=== PATIENT | female | born 1935 | race Caucasian/White ===

== ENCOUNTER 2016-10-27 09:25 | Inpatient (IN) | payer MEDICARE, OTHER ==
[2016-10-27] MEDS ORDERED: HYDROCODONE/APAP 5/325MG TABLET PO PRN ×2 (16:13→16:14)
--- NOTE | 2016-10-27 18:18 | Rehab Evaluation ---
Patient Information - Patient Information Diagnosis: R babatunde arthroplasty R hip Ordered Treatment: PT Evaluate and Treat Status: Initial Evaluation Date of Surgery: 10/25/16 History: Detail (The patient was transferred from [facility] on 10/27/16 for Rehabilitation in the Swing Bed Unit. The patient was admitted to [facility] on 10/24 after falling when her foot caught on the lazy boy and sustaining a R femoral neck fracture.) Past Medical/Surgical Hx: PAST MEDICAL/SURGICAL HISTORY Past Surgical History 10/24/2016 ORIF right hip left hip screw approx. 20yrs ago PMH - Respiratory Hx Respiratory Disorders No Hx Asthma No Hx Bronchitis No Hx Chronic Obstructive No Pulmonary Disease (COPD) Hx Dyspnea No Hx Pneumonia No Hx Pulmonary Embolism No Hx Sleep Apnea No Hx Tuberculosis No Hx of CPAP No Comment: currently on 02 2Lpnc PMH - Cardiovascular Hx Cardiovascular Disorders No Hx Abnormal EKG No Hx Cardiac Catheterization No Hx Chest Pain No Hx Congestive Heart Failure No Hx Deep Vein Thrombosis No Hx Edema No Hx Heart Attack No Hx Hypertension Yes Hx Hypotension No Hx Irregular Heartbeat No Hx Palpitations No Hx Pacemaker/Defibrillator No Hx Vascular Disease No PMH - Neuro Hx Neurological Disorders No PMH - GI Hx Gastrointestinal Disorders Yes Hx Weight Loss/Weight Gain Yes Comment: unable to tolerate sweets PMH - Hx Genitourinary Disorders No Comment: catheter removed noon today PMH - Endocrine Hx Endocrine Disorders No Hx Diabetes No Hx Thyroid Disease No PMH - Musculoskeletal Hx Musculoskeletal Disorders Yes Hx Arthritis Yes Hx Back Injury No Hx Fibromyalgia No Hx Gout No Hx Musculoskeletal Disease No PMH - Psych Hx Psychiatric Problems No PMH - Hematology/Oncology Hx Hematology/Oncology No Disorders Premorbid Status: Detail (Per the patient's report she was independent with all mobility and ambulated without assistive device. The patient was independent with all household tasks.) Social History: Detail (The patient lives in a one story home with her spouse. She has 1 step on the porch and one step to get into house with no railings. The patient has a regular tub/shower combo and regular toilet without grab bars. The patient has a standard walker and not other equipment.) Precautions: [place], Fall, Other (THR precautions) - Time With Patient Total Time Spent With Patient (Min): 30 Treatment Procedures: Detail (Initial Evaluation) Subjective Information - Subjective Information Per Patient (The patient complained of fatigue and R hip pain which was 3 prior to activity and 6 after activity using 0 to 10 pain scale.) Objective Data - Pain Pain Present: Yes Pain Intensity: 6 Pain Scale Used: Numeric (1 - 10) - Mental Status Patient Orientation: Oriented x3 - ROM Not within normal limits (L LE was Within Functional Limits, R LE was within BAILEY precuations.) - Strength/Tone Other (Not tested. B UE L LE was functional . R LE was not tested. The patient has bilateral UE tremoring , which she states is usual and LE tremoring probably due to fatigue.) - Bed Mobility Needs Assist (Supine to sit was maximal PA of 2 due to in part patient's apprehension and uncertainty of how to acheive movement. Sit to supine required maximal Pa to lift LE's and mod PA of 1 with upper body. The patient required maximal PA of 2 for scooting up in bed due to fatigue.) - Transfers Needs Assist (The patient required Moderate PA of 2 for sit to stand. The patient completed pivot transfer from bed to commode with CG of 2 and support of wheeled walker, tactile and verbal cues to complete transfer with WBAT on the R LE. The patient's movements were slow. The patient completed all activity with 2 L of O2.) - Balance Balance Sitting: Fair (The patient required support of surface to maintain balance in sitting) Balance Standing: Fair (The patient required support of walker to stand.) - Gait Detail (The patient did not ambulate.) Therapy Assessment - Therapy Assessment Detail (The patient requires assistance of 2 with mobility and fatigues quickly with activity. The patient has slow guarded movements and apprehension.) Problem List - Problem List Physical Therapy Problem List: Detail (1) Decreased LE strength 2) Decreased ability to complete sustained physical activity 3) The patient requires assist with mobility 4) Non ambulatory) Goals - Goals Physical Therapy Goals: 1) The patient will ambulate with assistive device 150 feet WBAT on the R independently. 2) The patient will ambulate on 2 to 3 steps with supervision. 3) The patient will be independent with bed mobility. 4) The patient will be independent with all transfers. 5) Evaluate LE strength using manual testing. 6) Independent with THR precautions and HEP of LE strengthening exercises. Prognosis - Prognosis Good (Excellent to return to home environment.) Plan - Plan Physical Therapy Plan: PT M-F 1 to 2 times for bed mobility, transfer training, gait training, LE strengthening exercises.
[2016-10-27] MEDS: TAPENTADOL 50 MG TAB PO PRN (18:38)
--- NOTE | 2016-10-27 19:20 | History & Physical ---
History of Present Illness - Date Date of Service for History & Physical: 10/28/16 - History of Present Illness Admitting Diagnosis: Status post right babatunde-hip arthroplasty History of Present Illness: 80 yo female admitted to our [facility] program following right hip hemiarthroplasty. PMHx of HTN. Patient brought to the ER 10/24/16 post fall from standing height. She tripped while walking from the kitchen to the living room and fell onto her right hip with immediate onset of pain and inability to ambulate. Prior to this, patient ambulates without any assistive devices and completes her ADL's independently. Patient lives in a one story home with her . She has three children and eleven grand children. Three steps to get into her home w/o a railing. She denies any history of DVT/PE. patient currently anticoagulated with Eliquis 2.5 mg BID. Pain control consists of Gates and Tapentadol. Patient does not like Gates, stating it makes her nauseous. She does not feel as if Tapentadol is controlling her pain. She states Tylenol works well for her at home and she prefers to trial this for pain. She denies any calf pain, SOB, fever, chills, constipation, diarrhea, abdominal pain, dysuria, hematuria, chest pain or diaphoresis. She has been experienced a non productive cough that improved with sitting up and the incentive spirometer. [place] [facility] prior to transfer. Patient has had < 50 CC's out since arrival. Bladder scan revealed > 500 cc's of urine in the bladder this morning. Patient is being straight cathed at this time if unable to void independently. Orthopedist: Dr. Nunez PCP: Joel Edouard PA-C General - Cognitive Patterns Speech: Normal, Soft Orientation: Oriented x3 - Communication Preferred Language?: Nauruan Level of Education: High School Comprehension Ability: No Impairment Able to Read: No Able to Write: No Select best description of speech pattern: Clear Speech Ability to express ideas and wants: Understood Understanding verbal content: Understands - Psychosocial Well-Being Usual Living Arrangement: Spouse - Physical Functioning Activity Level: Up with assist x2 Assistive Devices: 2 Wheel Walker, Oxygen Ambulation Ability: Dependent Bed Mobility: Dependent Transfer Ability: Dependent Bathing Ability: Dependent Personal Hygiene: Dependent Dressing Ability: Dependent Eating (Feeding) Ability: Independent Toileting Ability: Dependent Administer Own Medication: Independent - Continence Bladder Pattern: Due to Void - Dental Status Broken or loosely fitting full or partial dentures: Yes Abnormal mouth tissue (ulcers, masses, oral lesions, etc.): No Obvious or likely cavity or broken natural teeth: No Inflamed or bleeding gums or loose natural teeth: No Mouth/facial pain, discomfort or difficulty chewing: No - Nutrition Screening Poor oral intake > 1 week: Yes Unplanned weight loss in specified time frame: Yes Nutrition Support via tube feedings or parenteral nutrition: No Pressure Ulcer: No Significantly underweight define as BMI <18.5 kg/m2: No Albumin <2.5mg/dL: No Persistent nausea/vomiting/diarrhea >3 days: No Difficulty chewing/swallowing/mouth sores: No Admitting Diagnosis: Yes Nutrition Risk Score: High Risk Review of Systems Reviewed: No additional complaints except as noted below Constitutional: Reports: As per HPI. Denies: Chills, Fever, Malaise, Night sweats, Weakness, Weight change Eyes: Reports: As per HPI. Denies: Eye discharge, Eye pain, Photophobia, Vision change ENT: Reports: As per HPI. Denies: Congestion, Dental pain, Ear pain, Epistaxis , Hearing loss, Throat pain Respiratory: Reports: As per HPI. Denies: Cough, Dyspnea, Hemoptysis, Stridor, Wheezes Cardiovascular: Reports: As per HPI. Denies: Arrhythmia, Chest pain, Dyspnea on exertion, Edema, Murmurs, Orthopnea, Palpitations, Paroxysmal nocturnal dyspnea, Rheumatic Fever, Syncope Endocrine: Reports: As per HPI. Denies: Fatigue, Heat or cold intolerance, Polydipsia, Polyuria Gastrointestinal: Reports: As per HPI. Denies: Abdominal pain, Constipation, Diarrhea, Hematemesis, Hematochezia, Melena, Nausea, Vomiting Genitourinary: Reports: As per HPI. Denies: Abnormal menses, Discharge, Dyspareunia, Dysuria, Frequency, Hematuria, Incontinence, Retention, Urgency Musculoskeletal: Reports: As per HPI. Denies: Arthralgia, Back pain, Gout, Joint swelling, Myalgia, Neck pain Skin: Reports: As per HPI. Denies: Bruising, Change in color, Change in hair/ nails, Lesions, Pruritus, Rash Neurological: Reports: As per HPI. Denies: Abnormal gait, Confusion, Headache, Numbness, Paresthesias, Seizure, Tingling, Tremors, Vertigo, Weakness Psychiatric: Reports: As per HPI. Denies: Anxiety, Auditory hallucinations, Depression, Homicidal thoughts, Suicidal thoughts, Visual hallucinations Hematological/Lymphatic: Reports: As per HPI. Denies: Anemia, Blood Clots, Easy bleeding, Easy bruising, Swollen glands Past Medical History - SOCIAL HISTORY Smoking Status: Never smoker - SURGICAL HISTORY Past Surgical History: 10/24/2016 ORIF right hip. left hip screw approx. 20yrs ago - RESPIRATORY Hx Respiratory Disorders: No Hx Asthma: No Hx Bronchitis: No Hx COPD: No Hx Dyspnea: No Hx Pneumonia: No Hx Pulmonary Embolism: No Hx Sleep Apnea: No Hx Tuberculosis: No Hx of CPAP: No Comment:: currently on 02 2Lpnc - CARDIOVASCULAR Hx Cardio Disorders: No Hx Abnormal EKG: No Hx Cardiac Cath: No Hx Chest Pain: No Hx CHF: No Hx Deep Vein Thrombosis: No Hx Edema: No Hx Heart Attack: No Hx Hypertension: Yes Hx Hypotension: No Hx Irregular Heartbeat: No Hx Palpitations: No Hx Pacemaker/Defib: No Hx Vascular Disease: No - NEURO Hx Neuro Disorders: No - GI Hx GI Disorders: Yes Hx Wt Loss/Wt Gain: Yes Comment:: unable to tolerate sweets - Hx Genitourinary Disorders: No Comment:: catheter removed noon today - ENDOCRINE Hx Endocrine Disorders: No Hx Diabetes: No Hx Thyroid Disease: No - MUSCULOSKELETAL Hx Musculoskeletal Disorders: Yes Hx Arthritis: Yes Hx Back Injury: No Hx Fibromyalgia: No Hx Gout: No Hx Musculoskeletal Disease: No - PSYCH Hx Psych Problems: No - HEMATOLOGY/ONCOLOGY Hx Hematology/Oncology Disorders: No Family Medical History Any Significant Family History?: Yes H&P Meds/Allergies - Allergies Allergies: Allergies Allergy/AdvReac Type Severity Reaction Status Date / Time hydrocodone AdvReac NAUSEA Verified 10/28/16 10:28 - Home Medications Home Medications Medication Instructions Recorded Confirmed Last Taken Diltiazem HCl [Diltiazem 24Hr ER] 10/27/16 Unknown Diltiazem HCl [Diltiazem 24Hr ER] 10/27/16 Unknown Lisinopril [Zestril] 10/27/16 Unknown Rosuvastatin Calcium [Crestor] 5 mg PO DAILY 10/27/16 10/27/16 Unknown - Active Medications Active Medications: Current Medications Acetaminophen/Hydrocodone Bitart (Gates 5mg/325mg) 1 each PO Q6H PRN PRN Reason: Pain - General Acetaminophen/Hydrocodone Bitart (Gates 5mg/325mg) 2 each PO Q6H PRN PRN Reason: Pain - General Apixaban (Eliquis) 2.5 mg PO BID [facility] Aspirin (Ecotrin (Ec)) 81 mg PO QHS [facility] Calcium Carbonate/Glycine (Tums) 1,000 mg PO DAILYWM [facility] Diltiazem HCl (Cardizem Cd) 180 mg PO QHS [facility] Lisinopril (Zestril) 20 mg PO QHS [facility] Patient Own Med: Crestor ( Rosuvastatin) 5 Mg 1 each PO QHS [facility] Patient Own Med: Estrace Vaginal Cream 1 each [facility] Patient Own Med: (Primidone 50 Mg) 1 each PO QHS [facility] Patient Own Med: (Propranolol Er 80 Mg) 1 each PO QHS [facility] Tapentadol (Nucynta) 50 mg PO Q4H PRN PRN Reason: Pain - General Last Admin: 10/27/16 18:38 Dose: 50 mg Vitamin D (Vitamin D3) 2,000 unit PO QHS [facility] Physical Exam - Vital Signs Vital Signs: Vital Signs - Last 24 Hrs Temp Pulse Pulse Resp BP Pulse Ox 10/27/16 17:44 16 L 10/27/16 15:50 99.7 F H 79 18 145/77 93 L - General General Appearance: Alert, Oriented x3, Cooperative, No acute distress - Head Head exam: Atraumatic, Normocephalic - Eye Eye exam: Normal appearance - ENT ENT exam: Normal exam Ear exam: Normal external inspection Mouth exam: Normal external inspection - Neck Neck exam: Normal inspection, Full ROM - Respiratory Respiratory exam: Normal lung sounds bilaterally. negative: Prolonged expiratory, Wheezes - Cardiovascular Cardiovascular Exam: Regular rate, Normal rhythm - GI/Abdominal GI/Abdominal exam: Soft, Normal bowel sounds - Rectal Rectal exam: Deferred - exam: Deferred - Extremities Extremities exam: negative: Calf tenderness, Full ROM (not of RLE), Pedal edema , Tenderness - Back Back exam: Reports: Normal inspection - Neurological Neurological exam: Abnormal gait (due to pain level), Alert, Oriented X3 Discharge Potential - Discharge Needs Community Services Used Prior to Admission: None Plan - Swing Bed Certification Initial Certification Due: 10/27/16 14 Day Re-Cert Due: 11/10/16 44 Day Re-Cert Due: 12/10/16 74 Day Re-Cert Due: 01/09/17 - Detailed Diagnosis and Plan (1) S/P hip hemiarthroplasty Current Visit: Yes Status: Acute Base Code: Z96.649 - PRESENCE OF UNSPECIFIED ARTIFICIAL HIP JOINT Comment: 10/28/16: Patient is a 80 yo female s/p right hip ORIF. Will trial Tylenol 3 for pain control. Continue Elquis 2.5 mg BID for adequate DVT prophylaxis. PT/OT to assist with increasing physical strength and functioning. (2) Weakness Current Visit: Yes Status: Acute Base Code: R53.1 - WEAKNESS Comment: 10/28/16: 2/2 right hip surgery. PT/OT to help build physical strength and functioning. Adequate PO pain control. (3) DVT prophylaxis Current Visit: Yes Status: Acute Base Code: [id number] - Comment: 10/28/16: Eliquis 2.5 mg bid. (4) Full code status Current Visit: Yes Status: Acute Base Code: Z78.9 - OTHER SPECIFIED HEALTH STATUS Comment: 10/28/16: patient is full code
[2016-10-27] MEDS: ASPIRIN 81 MG TABEC PO SCH (21:32)
[2016-10-27] MEDS: DILTIAZEM 180MG CR CAPSULE PO SCH (21:32)
[2016-10-27] MEDS: LISINOPRIL 20 MG TABLET PO SCH (21:32)
[2016-10-27] MEDS: APIXABAN 2.5MG TABLET PO SCH (21:32)
[2016-10-27] MEDS: CHOLECALCIFEROL 1,000 UNIT TABLET PO SCH (21:32)
[2016-10-27] MEDS: CRESTOR 5 MG PO SCH (21:35)
[2016-10-27] MEDS: PROPRANOLOL 80 MG PO SCH (21:36)
[2016-10-27] MEDS: PRIMIDONE 50 MG PO SCH (21:36)
[2016-10-28] MEDS: TAPENTADOL 50 MG TAB PO PRN ×2 (01:16→09:08)
--- NOTE | 2016-10-28 08:44 | Rehab Evaluation ---
Patient Information - Patient Information Diagnosis: R babatunde arthroplasty R hip Ordered Treatment: OT Evaluate and Treat Status: Initial Evaluation Surgery: Yes (right hip babatudne arthroplasty) Date of Surgery: 10/25/16 History: Detail (The patient was transferred from [facility] on 10/27/16 for Rehabilitation in the Swing Bed Unit. The patient was admitted to [facility] on 10/24 after falling when her foot caught on the lazy boy and sustaining a R femoral neck fracture.) Past Medical/Surgical Hx: PAST MEDICAL/SURGICAL HISTORY Past Surgical History 10/24/2016 ORIF right hip left hip screw approx. 20yrs ago PMH - Respiratory Hx Respiratory Disorders No Hx Asthma No Hx Bronchitis No Hx Chronic Obstructive No Pulmonary Disease (COPD) Hx Dyspnea No Hx Pneumonia No Hx Pulmonary Embolism No Hx Sleep Apnea No Hx Tuberculosis No Hx of CPAP No Comment: currently on 02 2Lpnc PMH - Cardiovascular Hx Cardiovascular Disorders No Hx Abnormal EKG No Hx Cardiac Catheterization No Hx Chest Pain No Hx Congestive Heart Failure No Hx Deep Vein Thrombosis No Hx Edema No Hx Heart Attack No Hx Hypertension Yes Hx Hypotension No Hx Irregular Heartbeat No Hx Palpitations No Hx Pacemaker/Defibrillator No Hx Vascular Disease No PMH - Neuro Hx Neurological Disorders No PMH - GI Hx Gastrointestinal Disorders Yes Hx Weight Loss/Weight Gain Yes Comment: unable to tolerate sweets PMH - Hx Genitourinary Disorders No Comment: catheter removed noon today PMH - Endocrine Hx Endocrine Disorders No Hx Diabetes No Hx Thyroid Disease No PMH - Musculoskeletal Hx Musculoskeletal Disorders Yes Hx Arthritis Yes Hx Back Injury No Hx Fibromyalgia No Hx Gout No Hx Musculoskeletal Disease No PMH - Psych Hx Psychiatric Problems No PMH - Hematology/Oncology Hx Hematology/Oncology No Disorders Premorbid Status: Detail (Per the patient's report she was independent with all mobility and ambulated without assistive device. The patient was independent with all household tasks.) Social History: Detail (The patient lives with her spouse in a 1 story house with basement. Her laundry is in the basement and she goes down into the basement often. She has 1 step on the porch and one step to get into house with no railings. The patient has a regular tub/shower combo and regular toilet without grab bars. She reports one bathroom has an elevated toilet. She usually stands to shower and was Ind with all ADLs, meal prep, laundry and home mgmt. The patient has a standard walker.) Precautions: [place], Fall, Other (THR precautions) - Time With Patient Total Time Spent With Patient (Min): 60 Treatment Procedures: Detail (OT eval low complexity) Subjective Information - Subjective Information Per Patient Objective Data - Pain Pain Present: Yes (.Pt reports 0/10 pain at rest but increased hip pain with movement) - Mental Status Patient Orientation: Oriented x3 - Visual Perception Appears within normal limits for therapeutic activities (Pt wears glasses for reading.) - ROM Within normal limits (Bobby UE AROM WNL.) - Strength/Tone Within normal limits (Bobby UE MMT 4/5 throughout.) - Coordination Appears within normal limits for therapeutic activities (Pt presents with bobby UE tremors but reports this is normal for her.) - Bed Mobility Needs Assist (Pt required min assist to move right LE for supine to sit.) - Transfers Needs Assist (Sit to stand from EOB and commode with mod assist and use of walker. Able to pivot transfer with walker and mod assist.) - Balance Balance Sitting: Good Balance Standing: Poor - Sensation Intact - Gait Detail (Pt unable to ambulate at this time.) - ADL's/IADL's Detail (Pt able to comb hair and brush teeth with set up, Ind with UE dressing, total assist for LE dressing, able to complete partial toileting hygiene with set up and cues. Has not attempted showering at time of evaluation.) Therapy Assessment - Therapy Assessment Detail (Pt presents with impaired Ind with self cares and mobility as well as decreased endurance needed for safe and Ind ADLs/IADLS.) Problem List - Problem List Physical Therapy Problem List: Detail (1) Decreased LE strength 2) Decreased ability to complete sustained physical activity 3) The patient requires assist with mobility 4) Non ambulatory) Occupational Therapy Problem List: Detail (1. Decreased Ind with functional mobility needed for safe and Ind ADLs. 2. Decreased Ind with dressing. 3. Decreased Ind with showering. 4. Decreased endurance and tolerance to activity.) Goals - Goals Physical Therapy Goals: 1) The patient will ambulate with assistive device 150 feet WBAT on the R independently. 2) The patient will ambulate on 2 to 3 steps with supervision. 3) The patient will be independent with bed mobility. 4) The patient will be independent with all transfers. 5) Evaluate LE strength using manual testing. 6) Independent with THR precautions and HEP of LE strengthening exercises. Occupational Therapy Goals: 1. Pt will be Ind with bed mobility and transfers. 2. Pt will be Ind with total body dressing with use of adaptive equipment as needed. 3. Pt will be Ind with showering 4. Pt will demonstrate improved endurance and activity tolerance to allow safe and Ind ADLs. Prognosis - Prognosis Good Plan - Plan Physical Therapy Plan: PT M-F 1 to 2 times for bed mobility, transfer training, gait training, LE strengthening exercises. Occupational Therapy Plan: OT 2-4 days per week to address self cares, functional mobility, endurance, safety and Ind with ADLs/IADLs to allow return home with spouse.
[2016-10-28] MEDS: ESTRACE VAGINAL MC SCH (09:09)
[2016-10-28] MEDS: CALCIUM CARBONATE 500 MG TAB.CHEW PO SCH (09:09)
[2016-10-28] MEDS: APIXABAN 2.5MG TABLET PO SCH ×2 (09:09→21:59)
[2016-10-28] MEDS: DOCUSATE SODIUM 100 MG CAPSULE PO SCH ×2 (10:31→21:59)
[2016-10-28 13:09] LABS: URINE APPEARANCE CLEAR; URINE BILIRUBIN NEGATIVE (NEGATIVE); URINE BLOOD MODERATE (NEGATIVE); URINE COLOR YELLOW; URINE GLUCOSE (UA) NEGATIVE (NEGATIVE); URINE KETONE TRACE (NEGATIVE); URINE LEUKOCYTE ESTERASE MODERATE (NEGATIVE); URINE NITRITE NEGATIVE (NEGATIVE); URINE UROBILINOGEN 0.2 E.U./dL (0.20 - 1.00)
[2016-10-28 13:20] LABS: URINE BACTERIA 2+; URINE RENAL EPITHELIAL CELLS 0 - 2 /hpf; URINE WBC >50 (0-2/hpf); URINE YEAST MANY
[2016-10-28] MEDS ORDERED: FLUCONAZOLE 100 MG TABLET PO ONE (14:00)
[2016-10-28] MEDS: ACETAMINOPHEN/CODEINE TABLET PO PRN ×2 (14:33→21:56)
--- NOTE | 2016-10-28 17:06 | Physical Therapy Tx Note ---
Physical Therapy Tx Note - Treatment Note Tolerated: Fair Total Time Spent With Patient: 30 Physical Therapy Tx Note: Detail (Pt in bed upon arrival. Nrsg placed urinary catheter this afternoon due to retention. Pt states procedure was quite uncomfortable and requested pain medication at start of session. She was coaxed into participating with P.T. for LE exercises: performed 10 reps each of ankle pumps, heel slides (w/assist), quad sets, hamstring sets, gluteal sets, and hip abduction (w/assist). She was leaning to the right in bed from fatigue. She was repositioned w/additional pillow on right and lower bedrail raised as well. Bedside table placed over bed within patient's reach, as well as call light. Left in room w/daughter present; nrsg notified.) Physical Therapy Problem List: Detail (1) Decreased LE strength 2) Decreased ability to complete sustained physical activity 3) The patient requires assist with mobility 4) Non ambulatory) Physical Therapy Goals: 1) The patient will ambulate with assistive device 150 feet WBAT on the R independently. 2) The patient will ambulate on 2 to 3 steps with supervision. 3) The patient will be independent with bed mobility. 4) The patient will be independent with all transfers. 5) Evaluate LE strength using manual testing. 6) Independent with THR precautions and HEP of LE strengthening exercises. Prognosis: Good Physical Therapy Plan: PT M-F 1 to 2 times for bed mobility, transfer training, gait training, LE strengthening exercises.
[2016-10-28] MEDS: CHOLECALCIFEROL 1,000 UNIT TABLET PO SCH (21:57)
[2016-10-28] MEDS: LISINOPRIL 20 MG TABLET PO SCH (21:57)
[2016-10-28] MEDS: CRESTOR 5 MG PO SCH (21:58)
[2016-10-28] MEDS: PROPRANOLOL 80 MG PO SCH (21:58)
[2016-10-28] MEDS: PRIMIDONE 50 MG PO SCH (21:58)
[2016-10-28] MEDS: DILTIAZEM 180MG CR CAPSULE PO SCH (21:59)
[2016-10-28] MEDS: ASPIRIN 81 MG TABEC PO SCH (21:59)
[2016-10-29] MEDS: ACETAMINOPHEN/CODEINE TABLET PO PRN ×2 (02:56→20:28)
[2016-10-29 06:19] LABS: HEMATOCRIT 34.2 % (35.0-47.0); HEMOGLOBIN 11.3 gm/dl (11.6-16.0); MEAN CELL VOLUME 92.7 fl (81-97); MEAN CORPUSCULAR HEMOGLOBIN 30.6 pg (27-33); MEAN PLATELET VOLUME 10.6 fl (7.4-10.4); PLATELET COUNT 185 K/uL (130-400); RED BLOOD COUNT 3.69 M/uL (3.80-5.40); WHITE BLOOD COUNT W/O DIFF 8.6 K/uL (4.2-12.2)
[2016-10-29 06:24] LABS: BLOOD UREA NITROGEN 11 mg/dL (7-17); CREATININE 0.5 mg/dL (0.52-1.04); EST GLOMERULAR FILTRATION RATE > 60 ml/min; GLUCOSE,RANDOM 100 mg/dL (70-110)
[2016-10-29] MEDS: MAGNESIUM HYDROXIDE 30 ML UDC PO PRN (07:00)
[2016-10-29] MEDS ORDERED: ONDANSETRON 4 MG ODT TABLET SL ONE (07:51)
[2016-10-29] MEDS: CALCIUM CARBONATE 500 MG TAB.CHEW PO SCH (08:04)
[2016-10-29] MEDS: APIXABAN 2.5MG TABLET PO SCH (09:37)
[2016-10-29] MEDS: DOCUSATE SODIUM 100 MG CAPSULE PO SCH (09:37)
--- NOTE | 2016-10-29 11:37 | Physical Therapy Tx Note ---
Physical Therapy Tx Note - Treatment Note Tolerated: Good Total Time Spent With Patient: 45 Physical Therapy Tx Note: Detail (Pt asleep in bed upon arrival, awoke easily. Cooperative for PT. Performed 10 reps each of ankle pumps, heel slides w/assist , quad sets, hamstring sets, glut sets, and hip abduction w/assist. Min assist for getting OOB w/use of handrail, for R LE and for getting upright. Min assist for sit/stand transfer to FWW, CGA and VCs for stepping to, onto and off of scale for weight x 2, and back toward bed. Sat at bedside for 5 minutes sipping fluids. Mod assist for LE's to get back into bed and to position upper body in middle of bed. Fatigued but tolerated well. Improved ms recruitment R LE. Encouraged to get up w/nrsg for meals. Left in bed w/HOB elevated, call light in reach. Nrsg notified.) Physical Therapy Problem List: Detail (1) Decreased LE strength 2) Decreased ability to complete sustained physical activity 3) The patient requires assist with mobility 4) Non ambulatory) Physical Therapy Goals: 1) The patient will ambulate with assistive device 150 feet WBAT on the R independently. 2) The patient will ambulate on 2 to 3 steps with supervision. 3) The patient will be independent with bed mobility. 4) The patient will be independent with all transfers. 5) Increased LE strength to 3+/5 in proximal R LE ms groups, for stability w/ambulation. 6) Independent with THR precautions and HEP of LE strengthening exercises. Prognosis: Good Physical Therapy Plan: PT M-F 1 to 2 times for bed mobility, transfer training, gait training, LE strengthening exercises.
[2016-10-29] MEDS ORDERED: 0.9 % SODIUM CHLORIDE 1000ML 1,000 ML IV PRN (17:15)
[2016-10-29] MEDS: ONDANSETRON 4 MG ODT TABLET SL PRN ×2 (18:42→20:27)
[2016-10-30] MEDS: DOCUSATE SODIUM 100 MG CAPSULE PO SCH ×3 (01:01→21:22)
[2016-10-30] MEDS: LISINOPRIL 20 MG TABLET PO SCH ×2 (01:01→21:29)
[2016-10-30] MEDS: CHOLECALCIFEROL 1,000 UNIT TABLET PO SCH ×2 (01:01→21:29)
[2016-10-30] MEDS: DILTIAZEM 180MG CR CAPSULE PO SCH ×2 (01:01→21:22)
[2016-10-30] MEDS: APIXABAN 2.5MG TABLET PO SCH ×3 (01:01→21:22)
[2016-10-30] MEDS: ASPIRIN 81 MG TABEC PO SCH ×2 (01:04→21:22)
[2016-10-30] MEDS: PRIMIDONE 50 MG PO SCH ×2 (01:06→21:29)
[2016-10-30] MEDS: PROPRANOLOL 80 MG PO SCH ×2 (01:06→21:29)
[2016-10-30] MEDS: CRESTOR 5 MG PO SCH ×2 (01:06→21:28)
[2016-10-30] MEDS: CALCIUM CARBONATE 500 MG TAB.CHEW PO SCH (10:11)
[2016-10-30] MEDS ORDERED: BISACODYL 5 MG TABLET PO SCH (10:15)
[2016-10-30] MEDS ORDERED: TRIAMCINOLONE 0.5% PO PRN (10:28)
[2016-10-30] MEDS: ONDANSETRON 4 MG ODT TABLET SL PRN (11:26)
[2016-10-30] MEDS: ACETAMINOPHEN 500 MG TABLET PO PRN ×2 (11:49→21:21)
[2016-10-30] MEDS: MIRTAZAPINE 15 MG TABLET PO SCH (21:22)
[2016-10-31 06:27] LABS: HEMOGLOBIN 11.2 gm/dl (11.6-16.0); MEAN CELL VOLUME 92.4 fl (81-97); MEAN CORPUSCULAR HEMOGLOBIN 30.4 pg (27-33); MEAN CORPUSCULAR HGB CONC 32.9 g/dl (32-36); MEAN PLATELET VOLUME 9.9 fl (7.4-10.4); PLATELET COUNT 288 K/uL (130-400); RED BLOOD COUNT 3.68 M/uL (3.80-5.40); WHITE BLOOD COUNT W/O DIFF 8.8 K/uL (4.2-12.2)
[2016-10-31 06:36] LABS: ANION GAP 10.7 (7-16); BLOOD UREA NITROGEN 8 mg/dL (7-17); CARBON DIOXIDE 29.3 mmol/L (22-30); CREATININE 0.5 mg/dL (0.52-1.04); EST GLOMERULAR FILTRATION RATE > 60 ml/min; GLUCOSE,RANDOM 84 mg/dL (70-110)
[2016-10-31 06:37] LABS: PLATELET ESTIMATE NORMAL (NORMAL)
[2016-10-31] MEDS ORDERED: AL HYDROX/MAG HYDROX 30ML UD PO PRN (07:44)
[2016-10-31] MEDS: CALCIUM CARBONATE 500 MG TAB.CHEW PO SCH (08:31)
[2016-10-31] MEDS: ONDANSETRON 4 MG ODT TABLET SL PRN ×2 (08:32→15:51)
[2016-10-31] MEDS: ACETAMINOPHEN 500 MG TABLET PO PRN ×2 (08:34→21:08)
--- NOTE | 2016-10-31 08:34 | Occupational Therapy Tx Note ---
Occupational Therapy Tx Note - Treatment Note Tolerated: Fair Total Time Spent With Patient: 50 (ADL) Occupational Therapy Treatment Note: Detail (S: Pt reports her stomach is upset but she is willing to try showering. O: Supine to sit with min assist to move right LE to EOB. Sit to stand with walker and CG assist. Amb to shower , approx. 12 feet with walker and CG assist. Sat on commode chair and doffed shirt with verbal cues, briefs and sock type slippers with max assist. Pt completed showering in sitting with hand held shower and mod assist. She was able to stand with grab bars to wash marco area. Pt dried self with mod assist, donned shirt Indly. Amb to chair with 2 wheeled walker and CG assist. Pt educated re: use of sheet turner and hip precautions. Pt able to don briefs with mod assist and pants with verbal cues using sheet turner. Donned slippers with max assist. Combed hair with verbal cues. A: Mod assist for showering, dressing. Pt very fatigued and requires continual verbal encouragement. Improved mobility noted today.) Occupational Therapy Problem List: Detail (1. Decreased Ind with functional mobility needed for safe and Ind ADLs. 2. Decreased Ind with dressing. 3. Decreased Ind with showering. 4. Decreased endurance and tolerance to activity.) Occupational Therapy Goals: 1. Pt will be Ind with bed mobility and transfers. 2. Pt will be Ind with total body dressing with use of adaptive equipment as needed. 3. Pt will be Ind with showering 4. Pt will demonstrate improved endurance and activity tolerance to allow safe and Ind ADLs. Prognosis: Good Occupational Therapy Plan: OT 2-4 days per week to address self cares, functional mobility, endurance, safety and Ind with ADLs/IADLs to allow return home with spouse.
[2016-10-31] MEDS ORDERED: POTASSIUM CHLORIDE 20 MEQ TABLET PO ONE (08:49)
[2016-10-31] MEDS: PANTOPRAZOLE SODIUM 40 MG TABLET PO SCH (10:23)
[2016-10-31] MEDS: ESTRACE VAGINAL MC SCH (10:28)
[2016-10-31] MEDS: APIXABAN 2.5MG TABLET PO SCH ×2 (10:29→21:08)
[2016-10-31] MEDS: DOCUSATE SODIUM 100 MG CAPSULE PO SCH ×2 (10:29→21:08)
[2016-10-31 11:37] LABS: URINE APPEARANCE CLOUDY; URINE BILIRUBIN SMALL (NEGATIVE); URINE BLOOD LARGE (NEGATIVE); URINE COLOR YELLOW; URINE GLUCOSE (UA) NEGATIVE (NEGATIVE); URINE KETONE NEGATIVE (NEGATIVE); URINE LEUKOCYTE ESTERASE MODERATE (NEGATIVE); URINE NITRITE POSITIVE (NEGATIVE); URINE UROBILINOGEN 0.2 E.U./dL (0.20 - 1.00)
[2016-10-31 11:49] LABS: URINE BACTERIA 2+; URINE EPITHELIAL CELLS 0 - 2 (FEW); URINE WBC 36 - 50 (0-2/hpf)
--- NOTE | 2016-10-31 13:49 | Physical Therapy Tx Note ---
Physical Therapy Tx Note - Treatment Note Tolerated: Fair Total Time Spent With Patient: 45 Physical Therapy Tx Note: Detail (Patient was sleeping in bed when PT arrived. Reported she had just gotten back to bed from the chair for lunch. Also mentioned feeling very fatigued after this morning's OT session. Pt was agreeable to participate with B LE therapeutic exercises including ankle pumps x15, heel slides x5, hip abduction x5, SLR x5, glute squeezes with 2 sec hold x5 , combined glute squeezes with quad set x5, and quad sets x 5 with 2 breath hold. Required facilitation to initiate L LE heel slides and SLR and minAx1 to complete exercises on R LE. Also required frequent encouragement to complete all exercises. Educated patient on pursed lip breathing after she experienced a coughing bout. Able to demonstrate appropriate breathing technique. Attempted to have patient ambulate, however patient reported "her stomach hurts and she cannot tolerant standing and walking right now." She was able to transition from supine to sit EOB with independent scooting and with minAx1 to move R LE. Required verbal cueing to use bed rail for UE support rather than walker. Demonstrated sit to stand with WBAT with CGA x1 and stood upright for 30 seconds with CGAx1 before deciding to discontinue therapeutic activity. Required ModAx1 for LEs to transition from EOB to supine. Instructed patient to get up to chair with nursing for dinner. Plan to continue to progress LE therapeutic exercises and address gait training and progress distance ambulated per patient tolerance.) Physical Therapy Problem List: Detail (1) Decreased LE strength 2) Decreased ability to complete sustained physical activity 3) The patient requires assist with mobility 4) Non ambulatory) Physical Therapy Goals: 1) The patient will ambulate with assistive device 150 feet WBAT on the R independently. 2) The patient will ambulate on 2 to 3 steps with supervision. 3) The patient will be independent with bed mobility. 4) The patient will be independent with all transfers. 5) Increased LE strength to 3+/5 in proximal R LE ms groups, for stability w/ambulation. 6) Independent with THR precautions and HEP of LE strengthening exercises. Prognosis: Moderate Physical Therapy Plan: PT M-F 1 to 2 times for bed mobility, transfer training, gait training, LE strengthening exercises.
[2016-10-31] MEDS: LISINOPRIL 20 MG TABLET PO SCH (15:53)
[2016-10-31] MEDS: TMP/SMZ 160MG/800MG TAB PO SCH ×2 (17:11→21:08)
[2016-10-31] MEDS: DILTIAZEM 180MG CR CAPSULE PO SCH (21:08)
[2016-10-31] MEDS: MIRTAZAPINE 15 MG TABLET PO SCH (21:08)
[2016-10-31] MEDS: CRESTOR 5 MG PO SCH (21:14)
[2016-10-31] MEDS: PRIMIDONE 50 MG PO SCH (21:14)
[2016-10-31] MEDS: PROPRANOLOL 80 MG PO SCH (21:15)
--- NOTE | 2016-11-01 08:28 | Occupational Therapy Tx Note ---
Occupational Therapy Tx Note - Treatment Note Tolerated: Fair Total Time Spent With Patient: 45 (ADL) Occupational Therapy Treatment Note: Detail (S: Pt fatigued but willing to participate. O: Supine to sit with assist to move bedding. Sit to stand and ambulated to bathroom sink with 2 wheeled walker and CG assist. Pt continues to c/o not feeling well and having an upset stomach. She was able to complete oral hygiene and washing face in standing at sink. Pt toileted with CG assist. Amb to EOB with walker and rested x 2 min. Pt amb to scale and was weighed with assist from nursing. Amb to chair with walker. Pt able to doff pants and briefs with counter cutter and verbal cues. Donned clean briefs and pants with counter cutter and verbal cues for adapted dressing technique. Ind with sit to stand from chair. Donned slippers with max assist. A: Improve mobility today, pt still very fatigued and not feeling well. Verbal cues for adapted dressing technique with counter cutter.) Occupational Therapy Problem List: Detail (1. Decreased Ind with functional mobility needed for safe and Ind ADLs. 2. Decreased Ind with dressing. 3. Decreased Ind with showering. 4. Decreased endurance and tolerance to activity.) Occupational Therapy Goals: 1. Pt will be Ind with bed mobility and transfers. 2. Pt will be Ind with total body dressing with use of adaptive equipment as needed. 3. Pt will be Ind with showering 4. Pt will demonstrate improved endurance and activity tolerance to allow safe and Ind ADLs. Prognosis: Good Occupational Therapy Plan: OT 2-4 days per week to address self cares, functional mobility, endurance, safety and Ind with ADLs/IADLs to allow return home with spouse.
[2016-11-01] MEDS: CALCIUM CARBONATE 500 MG TAB.CHEW PO SCH (10:19)
[2016-11-01] MEDS: TMP/SMZ 160MG/800MG TAB PO SCH ×2 (10:20→21:38)
[2016-11-01] MEDS: ASPIRIN 81 MG TABEC PO SCH (10:21)
[2016-11-01] MEDS: DOCUSATE SODIUM 100 MG CAPSULE PO SCH ×2 (10:21→21:38)
[2016-11-01] MEDS: APIXABAN 2.5MG TABLET PO SCH ×2 (10:22→21:38)
[2016-11-01] MEDS: LISINOPRIL 20 MG TABLET PO SCH (10:23)
[2016-11-01] MEDS: CHOLECALCIFEROL 1,000 UNIT TABLET PO SCH (10:23)
[2016-11-01] MEDS: PANTOPRAZOLE SODIUM 40 MG TABLET PO SCH (10:24)
[2016-11-01] MEDS: ACETAMINOPHEN 500 MG TABLET PO PRN ×2 (10:25→21:37)
--- NOTE | 2016-11-01 14:56 | Physical Therapy Tx Note ---
Physical Therapy Tx Note - Treatment Note Tolerated: Good Total Time Spent With Patient: 15 Physical Therapy Tx Note: Detail (Patient was lying in bed visiting with zahida when PT arrived. Therapy session focused on bed mobility, transfers, and gait training. Patient required minAx1 to move R LE when transitioning from supine to sitting EOB. Required CGAx2 with sit to stand transfer. Pt ambulated with step to gait pattern 12'x2 with 1 rest break. Gait analysis revealed tendency to assume 'stooped posture." Pt able to assume a more upright posture with frequent verbal cueing. Pt demonstrated improvement with bed mobility as evident by independently scooting up in bed. Required ModAx2 with PT last treatment session. Plan to continue to progress distance ambulated to address parts counterman physical therapy goals and ensure adequate function for return to home.) Physical Therapy Problem List: Detail (1) Decreased LE strength 2) Decreased ability to complete sustained physical activity 3) The patient requires assist with mobility 4) Non ambulatory) Physical Therapy Goals: 1) The patient will ambulate with assistive device 150 feet WBAT on the R independently. 2) The patient will ambulate on 2 to 3 steps with supervision. 3) The patient will be independent with bed mobility. 4) The patient will be independent with all transfers. 5) Increased LE strength to 3+/5 in proximal R LE ms groups, for stability w/ambulation. 6) Independent with THR precautions and HEP of LE strengthening exercises. Prognosis: Moderate (Patient has demonstrated improvement from last treatment session, however, has shown inconsistent tolerance to PT due to multiple factors (i.e., deconditioning, recent dx of UTI, nausea, among others).) Physical Therapy Plan: PT M-F 1 to 2 times for bed mobility, transfer training, gait training, LE strengthening exercises.
[2016-11-01] MEDS: DILTIAZEM 180MG CR CAPSULE PO SCH (21:38)
[2016-11-01] MEDS: PROPRANOLOL 80 MG PO SCH (21:38)
[2016-11-01] MEDS: CRESTOR 5 MG PO SCH (21:38)
[2016-11-01] MEDS: MIRTAZAPINE 15 MG TABLET PO SCH (21:38)
[2016-11-01] MEDS: PRIMIDONE 50 MG PO SCH (21:38)
[2016-11-02] MEDS: PANTOPRAZOLE SODIUM 40 MG TABLET PO SCH ×2 (05:51→10:17)
--- NOTE | 2016-11-02 09:56 | Occupational Therapy Tx Note ---
Occupational Therapy Tx Note - Treatment Note Tolerated: Fair Total Time Spent With Patient: 50 (ADL) Occupational Therapy Treatment Note: Detail (S: Pt continues to feel very weak. O: Supine to sit with assist to move bed covers. Sit to stand and amb to sink with 2 wheeled walker and CG assist. Sat at sink and performed oral hygiene, upper body sponge bathing and UE dressing Indly. Doffed pants and briefs with auto air conditioning installer and verbal cues, completed marco care with CG assist and pt required CG assist for sit to stand from chair and to maintain static standing. Donned briefs and pants with auto air conditioning installer and assist for catheter. Amb back to room to chair with walker and CG assist. Provided pt education for use of sock aid and pt was able to demo donning of right sock with verbal cues. Donned tennis shoes with assist to tie left shoe and verbal cues for hip precautions. A: Min assist/CG assist with dressing using adaptive equipment. Pt continues to be very fatigued with any activity.) Occupational Therapy Problem List: Detail (1. Decreased Ind with functional mobility needed for safe and Ind ADLs. 2. Decreased Ind with dressing. 3. Decreased Ind with showering. 4. Decreased endurance and tolerance to activity.) Occupational Therapy Goals: 1. Pt will be Ind with bed mobility and transfers. 2. Pt will be Ind with total body dressing with use of adaptive equipment as needed. 3. Pt will be Ind with showering 4. Pt will demonstrate improved endurance and activity tolerance to allow safe and Ind ADLs. Prognosis: Good Occupational Therapy Plan: OT 2-4 days per week to address self cares, functional mobility, endurance, safety and Ind with ADLs/IADLs to allow return home with spouse.
[2016-11-02] MEDS: CALCIUM CARBONATE 500 MG TAB.CHEW PO SCH ×2 (10:18→13:06)
[2016-11-02] MEDS: ACETAMINOPHEN 500 MG TABLET PO PRN (10:18)
[2016-11-02] MEDS: CHOLECALCIFEROL 1,000 UNIT TABLET PO SCH (10:19)
[2016-11-02] MEDS: APIXABAN 2.5MG TABLET PO SCH ×2 (10:19→23:59)
[2016-11-02] MEDS: TMP/SMZ 160MG/800MG TAB PO SCH ×2 (10:19→23:56)
[2016-11-02] MEDS: LISINOPRIL 20 MG TABLET PO SCH (10:20)
[2016-11-02] MEDS: DOCUSATE SODIUM 100 MG CAPSULE PO SCH ×2 (10:20→23:55)
[2016-11-02] MEDS: ASPIRIN 81 MG TABEC PO SCH (10:54)
--- NOTE | 2016-11-02 14:23 | Medical Records Consult ---
DATE OF CONSULTATION: 11/01/2016. REASON FOR CONSULTATION: Urinary retention. CASE SUMMARY: Thank you for asking me to see this delightful 80-year-old female who was admitted to [facility] after falling and sustaining a fracture of her right hip. She underwent right hip babatunde- arthroplasty on October 25. Since that time she has been in urinary retention. She denies having any urinary problems before presentation to the hospital. She does give a history of having a pessary which has been left in place. She says it does not need to be re-evaluated until February. She has had no prior genitourinary surgeries including no history of bladder suspension or urethral sling. Her bladder scan post-void residuals have ranged from 500 to 700 mL. She had little, if any, filling sensation during that time. Her Edmond catheter has simply been replaced after she failed a repeat voiding trial. PAST MEDICAL HISTORY: Her past medical history is significant as noted above and for hypertension. PAST SURGICAL HISTORY: Her past surgical history is noted above. MEDICATIONS: Are noted per the medical administration record. ALLERGIES: None. She does have a sensitivity to hydrocodone. REVIEW OF SYSTEMS: Review of systems is 10+ per the chart. SOCIAL HISTORY: Negative for alcohol or tobacco use. FAMILY HISTORY: Negative for urological problems. PHYSICAL EXAMINATION: General: The patient is awake and alert, oriented times three, and in no distress. She appears thin. Family members are in the room with us. Vital Signs: Heart rate is 82. Blood pressure is 150/100. She is afebrile. Neck: The neck shows no masses with full range of motion. Chest: The chest shows normal expansion without audible wheezing. Abdomen: The abdomen is soft, nontender, and nondistended. The bladder is not palpable. Extremities: She does have significant lower extremity and genital swelling. LABORATORY DATA: Her laboratory studies were all reviewed as noted per the medical record. She also has a urinalysis from October 31 which shows moderate leukocyte Estrace, 36 to 50 white blood cells, too numerous to count red blood cells, and 0 to 2 epithelial cells. This is all likely due to the presence of the catheter and catheter-related trauma to the bladder. IMPRESSIONS: 1. Postoperative acute urinary retention status post right displaced femoral neck fracture and babatunde-arthroplasty. 2. A history of pelvic prolapse with the use of a pessary prior to admission. PLAN: I would expect that she will be able to void normally with some time and with an increase in her strength and activity level. This is seen quite commonly in the post hip fracture population. Because of the edema, I feel that intermittent catheterization would be a less attractive option due to difficulty in exposing the genitalia. I would therefore recommend that she maintain the Edmond catheter for two more weeks, and if she remains at [facility] in two weeks then I can see her in the specialty clinic for a voiding trial. If she should be discharged before that time, I would be happy to see her in my [place] office for a voiding trial there. I gave the patient and family members my card with office information. Thank you again for the opportunity to see this very pleasant patient. Please let me know if I can be of further assistance. Johnie Britton M.D. Date Time JOB NUMBER: [id number] MTDD
[2016-11-02] MEDS: ACETAMINOPHEN 500 MG TABLET PO SCH (16:16)
--- NOTE | 2016-11-02 17:11 | Physical Therapy Tx Note ---
Physical Therapy Tx Note - Treatment Note Tolerated: Good Total Time Spent With Patient: 30 Physical Therapy Tx Note: Detail (Patient was sitting in bed when PT arrived. Patient ambulated 11' to using FWW with CGAx1 and PT transported patient to PT rehab floor in . Pt completed all transfers independently with less difficulty and improved coordination. B LE therapeutic exercises included: hip flexion (honoring hip precautions), seated hip abduction with yellow theraband x10, seated hip adductor squeeze with ball, knee flexion with yellow theraband on R LE and red theraband on L LE x10 each, and standing balance with B UE on FWW with eyes closed for 15 seconds. Pt ambulated 25' with FWW with CGAx1. Required frequent verbal cueing to maintain upright trunk positioning and appropriate placement of walker. Patient transitioned from sitting EOB to supine independently with less difficulty and without verbal cueing or encouragement. Educated patient on acceptable max bed height to reduce apprehension about hip precautions.) Physical Therapy Problem List: Detail (1) Decreased LE strength 2) Decreased ability to complete sustained physical activity 3) The patient requires assist with mobility 4) Non ambulatory) Physical Therapy Goals: 1) The patient will ambulate with assistive device 150 feet WBAT on the R independently. 2) The patient will ambulate on 2 to 3 steps with supervision. 3) The patient will be independent with bed mobility. 4) The patient will be independent with all transfers. 5) Increased LE strength to 3+/5 in proximal R LE ms groups, for stability w/ambulation. 6) Independent with THR precautions and HEP of LE strengthening exercises. Physical Therapy Plan: PT M-F 1 to 2 times for bed mobility, transfer training, gait training, LE strengthening exercises.
[2016-11-02] MEDS: SUCRALFATE 1 G/10 ML UD PO SCH (23:55)
[2016-11-02] MEDS: DILTIAZEM 180MG CR CAPSULE PO SCH (23:58)
[2016-11-03] MEDS: PROPRANOLOL 80 MG PO SCH ×2 (00:01→22:52)
[2016-11-03] MEDS: CRESTOR 5 MG PO SCH ×2 (00:02→22:52)
[2016-11-03] MEDS: PRIMIDONE 50 MG PO SCH ×2 (00:02→22:52)
[2016-11-03] MEDS: ACETAMINOPHEN 500 MG TABLET PO SCH ×4 (00:04→22:53)
[2016-11-03 06:26] LABS: ALBUMIN 2.8 gm/dL (3.5-5.0); ALKALINE PHOSPHATASE 44 U/L (38-126); ALT/SGPT 36 U/L (9-52); ANION GAP 11.8 (7-16); AST/SGOT 21 U/L (14-36); BILIRUBIN,TOTAL 0.65 mg/dL (0.2-1.3); BLOOD UREA NITROGEN 13 mg/dL (7-17); CARBON DIOXIDE 27.2 mmol/L (22-30); CREATININE 0.7 mg/dL (0.52-1.04); EST GLOMERULAR FILTRATION RATE > 60 ml/min; GLUCOSE,RANDOM 100 mg/dL (70-110); TOTAL PROTEIN 5.6 gm/dL (6.3-8.2)
[2016-11-03] MEDS: PANTOPRAZOLE SODIUM 40 MG TABLET PO SCH (07:02)
[2016-11-03] MEDS: LISINOPRIL 20 MG TABLET PO SCH (09:26)
[2016-11-03] MEDS: CALCIUM CARBONATE 500 MG TAB.CHEW PO SCH (09:26)
[2016-11-03] MEDS: SUCRALFATE 1 G/10 ML UD PO SCH ×2 (09:27→22:53)
[2016-11-03] MEDS: TMP/SMZ 160MG/800MG TAB PO SCH ×2 (09:27→22:52)
[2016-11-03] MEDS: ASPIRIN 81 MG TABEC PO SCH (09:28)
[2016-11-03] MEDS: APIXABAN 2.5MG TABLET PO SCH ×2 (09:28→22:52)
[2016-11-03] MEDS: DOCUSATE SODIUM 100 MG CAPSULE PO SCH ×2 (09:28→22:52)
[2016-11-03] MEDS: CHOLECALCIFEROL 1,000 UNIT TABLET PO SCH (09:28)
--- NOTE | 2016-11-03 12:04 | Physical Therapy Tx Note ---
Physical Therapy Tx Note - Treatment Note Total Time Spent With Patient: 50 Physical Therapy Tx Note: Detail (Patient was sitting up in bed when PT arrived. All transfers were performed independently with SBAx1. Pt ambulated 12 ' with FWW with CGAx1 to WC and SPT brought her to rehab floor for therapy session. With gait training, patient ambulated 30' with FWW with CGAx1. Required intermittent verbal cueing to maintain upright posture. Demonstrated an increase in sonali and ease of movement per observation. Therapeutic exercises included: seated B hip abduction with red theraband 2x10, B hamstring curls with red theraband x15 each, and B knee extension with red theraband on LLE and yellow on RLE x10 each. Able to progress resistance and repetitions since last treatment. STM performed for 5 minutes to B low back to address patient complaints of LBP attributed to lying in bed. Moist hot pack applied to low back at end of treatment session. Notified nursing to add layers if pt does not tolerate heat over time.) Physical Therapy Problem List: Detail (1) Decreased LE strength 2) Decreased ability to complete sustained physical activity 3) The patient requires assist with mobility 4) Non ambulatory) Physical Therapy Goals: 1) The patient will ambulate with assistive device 150 feet WBAT on the R independently. 2) The patient will ambulate on 2 to 3 steps with supervision. 3) The patient will be independent with bed mobility. 4) The patient will be independent with all transfers. 5) Increased LE strength to 3+/5 in proximal R LE ms groups, for stability w/ambulation. 6) Independent with THR precautions and HEP of LE strengthening exercises. Physical Therapy Plan: PT M-F 1 to 2 times for bed mobility, transfer training, gait training, LE strengthening exercises.
--- NOTE | 2016-11-03 12:07 | Physical Therapy Tx Note ---
Physical Therapy Tx Note - Treatment Note Total Time Spent With Patient: 50 Physical Therapy Tx Note: Detail (Patient was sitting up in bed when PT arrived. All transfers were performed independently with SBAx1. Pt ambulated 12 ' with FWW with CGAx1 to WC and SPT brought her to rehab floor for therapy session. With gait training, patient ambulated 30' with FWW with CGAx1. Required intermittent verbal cueing to maintain upright posture. Demonstrated an increase in sonali and ease of movement per observation. Therapeutic exercises included: seated B hip abduction with red theraband 2x10, B hamstring curls with red theraband x15 each, and B knee extension with red theraband on LLE and yellow on RLE x10 each. Able to progress resistance and repetitions since last treatment. STM performed for 5 minutes to B low back to address patient complaints of LBP attributed to lying in bed. Moist hot pack applied to low back at end of treatment session with patient seated upright in her chair. Notified nursing to add layers if pt does not tolerate heat over time and to discontinue after 20-30 minutes.) Physical Therapy Problem List: Detail (1) Decreased LE strength 2) Decreased ability to complete sustained physical activity 3) The patient requires assist with mobility 4) Non ambulatory) Physical Therapy Goals: 1) The patient will ambulate with assistive device 150 feet WBAT on the R independently. 2) The patient will ambulate on 2 to 3 steps with supervision. 3) The patient will be independent with bed mobility. 4) The patient will be independent with all transfers. 5) Increased LE strength to 3+/5 in proximal R LE ms groups, for stability w/ambulation. 6) Independent with THR precautions and HEP of LE strengthening exercises. Physical Therapy Plan: PT M-F 1 to 2 times for bed mobility, transfer training, gait training, LE strengthening exercises.
--- NOTE | 2016-11-03 16:03 | Physical Therapy Tx Note ---
Physical Therapy Tx Note - Treatment Note Tolerated: Fair Total Time Spent With Patient: 45 Physical Therapy Tx Note: Detail Physical Therapy Problem List: Detail (1) Decreased LE strength 2) Decreased ability to complete sustained physical activity 3) The patient requires assist with mobility 4) Non ambulatory) Physical Therapy Goals: 1) The patient will ambulate with assistive device 150 feet WBAT on the R independently. 2) The patient will ambulate on 2 to 3 steps with supervision. 3) The patient will be independent with bed mobility. 4) The patient will be independent with all transfers. 5) Increased LE strength to 3+/5 in proximal R LE ms groups, for stability w/ambulation. 6) Independent with THR precautions and HEP of LE strengthening exercises. Prognosis: Good (Pt in bed upon arrival, daughter and present in room. Drowsy, but awake and cooperative with some coaxing for PT. Pt sat up to edge of bed w/CGA for R LE, independent scooting in sitting. UE ex: shoulder flexion x 10, shoulder circles in abduction x 10, push/pull x 10. Sit/stand transfer w/SBA performed 3 times during session; attempted standing marching w/ R. Performed seated marching in reclined position x10 B, LAQ x 10 B, heel slides x 10 B, hip abd w/heel slide x 10B w/CGA facilitation for proper LE posture/alignment. Tolerated standing in walker w/encouragement for one minute x 2. Min assist for R LE to get back into bed, independent scooting in sitting. VCs and min assist for scooting in supine and to scoot up in bed using bedrails. Positioned in bed w/call light in reach, daughter and still present in room.) Physical Therapy Plan: PT M-F 1 to 2 times for bed mobility, transfer training, gait training, LE strengthening exercises.
[2016-11-03] MEDS: DILTIAZEM 180MG CR CAPSULE PO SCH (22:51)
[2016-11-03] MEDS: MIRTAZAPINE 15 MG TABLET PO SCH ×2 (22:51)
[2016-11-04] MEDS: DIPHENHYDRAMINE HCL 25 MG CAPSULE PO PRN ×2 (01:50→21:15)
[2016-11-04] MEDS: ACETAMINOPHEN 500 MG TABLET PO SCH ×3 (06:30→21:16)
[2016-11-04] MEDS: PANTOPRAZOLE SODIUM 40 MG TABLET PO SCH (06:30)
--- NOTE | 2016-11-04 08:16 | Occupational Therapy Tx Note ---
Occupational Therapy Tx Note - Treatment Note Tolerated: Good Total Time Spent With Patient: 45 (ADL) Occupational Therapy Treatment Note: Detail (S: Pt reports feeling a little better this morning. O: Supine to sit Indly. Pt became nauseated for several minutes after sitting up. Sit to stand and amb to sink with 2 wheeled walker and SBA. Pt completed sponge bathing, oral hygiene and combed hair in sitting and standing at sink. Able to complete upper body dressing Ind, lower body dressing with beauty school instructor, sock aid and min verbal cues as well as assist for catheter. Pt amb back to chair with walker and SBA. A: Pt continues with decreased endurance for self cares although this is improving each visit.) Occupational Therapy Problem List: Detail (1. Decreased Ind with functional mobility needed for safe and Ind ADLs. 2. Decreased Ind with dressing. 3. Decreased Ind with showering. 4. Decreased endurance and tolerance to activity.) Occupational Therapy Goals: 1. Pt will be Ind with bed mobility and transfers. 2. Pt will be Ind with total body dressing with use of adaptive equipment as needed. 3. Pt will be Ind with showering 4. Pt will demonstrate improved endurance and activity tolerance to allow safe and Ind ADLs. Prognosis: Good Occupational Therapy Plan: OT 2-4 days per week to address self cares, functional mobility, endurance, safety and Ind with ADLs/IADLs to allow return home with spouse.
[2016-11-04] MEDS: MAGNESIUM HYDROXIDE 30 ML UDC PO PRN (09:43)
[2016-11-04] MEDS: CALCIUM CARBONATE 500 MG TAB.CHEW PO SCH (09:43)
[2016-11-04] MEDS: ASPIRIN 81 MG TABEC PO SCH (09:44)
[2016-11-04] MEDS: SUCRALFATE 1 G/10 ML UD PO SCH ×2 (09:44→21:15)
[2016-11-04] MEDS: TMP/SMZ 160MG/800MG TAB PO SCH ×2 (09:44→21:15)
[2016-11-04] MEDS: DOCUSATE SODIUM 100 MG CAPSULE PO SCH ×2 (09:44→21:15)
[2016-11-04] MEDS: APIXABAN 2.5MG TABLET PO SCH ×2 (09:45→21:15)
[2016-11-04] MEDS: CHOLECALCIFEROL 1,000 UNIT TABLET PO SCH (09:46)
[2016-11-04] MEDS: LISINOPRIL 20 MG TABLET PO SCH (09:46)
--- NOTE | 2016-11-04 12:13 | Physician Progress Note ---
Subjective - Date Date of Progress Note: 11/03/16 - Admitting Diagnosis Diagnosis: Status post right babatunde-hip arthroplasty - Subjective Events since last encounter: not much improvment in diet but feels she is back up to 50% in adls with help of PT. daughter and family encouraging her to eat. started remeron, prilosec, and carafate for patient for additional appetite improvement and gerd treatment. Nursing Care Plan Problem List Activity Intolerance (Swing Bed) Start: 10/27/16 16: 39 Freq: Status: Active Created 10/27/16 16:39 MMT (Rec: 10/27/16 16:39 MMT [id number]) Knowledge Deficit (Swing Bed) Start: 10/27/16 16: 39 Freq: Status: Active Created 10/27/16 16:39 MMT (Rec: 10/27/16 16:39 MMT [id number]) Nutrition Less than Body Requirements Start: 10/27/16 18: 11 Freq: Status: Active Created 10/27/16 18:11 MMT (Rec: 10/27/16 18:11 MMT [id number]) Pain (Swing Bed) Start: 10/27/16 16: 39 Freq: Status: Active Created 10/27/16 16:39 MMT (Rec: 10/27/16 16:39 MMT [id number]) Edit Status 10/29/16 13:50 SAF (Rec: 10/29/16 13:50 SAF [id number]) Active=>Complete Edit Status 10/30/16 05:07 KJJ (Rec: 10/30/16 05:07 KJJ [id number]) Complete=>Active Skin Integrity, Impaired (Swing Bed) Start: 10/27/16 18: 11 Freq: Status: Active Created 10/27/16 18:11 MMT (Rec: 10/27/16 18:11 MMT [id number]) General - Cognitive Patterns Speech: Normal, Soft Thought Process: Intact Thought Content: Normal - Communication Select best description of speech pattern: Clear Speech Ability to express ideas and wants: Understood Understanding verbal content: Understands - Mood and Behavior Patterns Appearance: Disheveled Mood: Normal Attitude: Cooperative Motor Activity: Calm Affect: Appropriate Hallucinations: Denies - Physical Functioning Activity Level: Up with assist x1 Turning: With partial assist ROM Ability: Moves all extremities Assistive Devices: 2 Wheel Walker Activity Level Comment: Went upstairs with PT today, up in chair for lunch Ambulation Ability: Needs Assist Bed Mobility: Needs Assist Transfer Ability: Needs Assist Bathing Ability: Needs Assist Personal Hygiene: Needs Assist Dressing Ability: Needs Assist Eating (Feeding) Ability: Independent Toileting Ability: Needs Assist Administer Own Medication: Dependent Care Ability Comment: needs encouragement with food and drinking water/ fluids. [ End ] - Continence Bowel Pattern: Normal for Patient Bladder Pattern: Normal Meds/Allergies - Allergies Allergies Allergy/AdvReac Type Severity Reaction Status Date / Time hydrocodone AdvReac NAUSEA Verified 10/28/16 10:28 - Active Medications Current Medications Acetaminophen (Tylenol 500mg Tab) 1,000 mg PO Q8HR [facility] Last Admin: 11/04/16 06:30 Dose: 1,000 mg Acetaminophen/Codeine Phosphate (Tylenol #3) 1 udtab PO Q4H PRN PRN Reason: Pain - General Last Admin: 10/29/16 20:28 Dose: 1 udtab Al Hydroxide/Mg Hydroxide (Maalox) 30 ml PO Q4H PRN PRN Reason: GI UPSET Apixaban (Eliquis) 2.5 mg PO BID [facility] Last Admin: 11/04/16 09:45 Dose: 2.5 mg Aspirin (Ecotrin (Ec)) 81 mg PO DAILY [facility] Last Admin: 11/04/16 09:44 Dose: 81 mg Bisacodyl (Dulcolax) 5 mg PO DAILY PRN PRN Reason: Constipation Calcium Carbonate/Glycine (Tums) [facility] [place] Last Admin: 11/04/16 09:43 Dose: Not Given Diltiazem HCl (Cardizem Cd) 180 mg PO QHS [facility] Last Admin: 11/03/16 22:51 Dose: 180 mg Diphenhydramine HCl (Benadryl Capsule) 25 mg PO QHS PRN PRN Reason: SLEEP Last Admin: 11/04/16 01:50 Dose: 25 mg Docusate Sodium (Colace) 100 mg PO BID [facility] Last Admin: 11/04/16 09:44 Dose: 100 mg Lisinopril (Zestril) 20 mg PO DAILY [facility] Last Admin: 11/04/16 09:46 Dose: 20 mg Magnesium Hydroxide (Milk Of Magnesium) 30 ml PO DAILY PRN PRN Reason: INDIGESTION Last Admin: 11/04/16 09:43 Dose: 30 ml Mirtazapine (Remeron) 30 mg PO QHS [facility] Last Admin: 11/03/16 22:51 Dose: 30 mg Ondansetron HCl (Zofran Odt) 4 mg SL Q8H PRN PRN Reason: NAUSEA/VOMITING Last Admin: 10/31/16 15:51 Dose: 4 mg Pantoprazole [facility] ([facility]ix) [facility] Last Admin: 11/04/16 06:30 Dose: 40 mg Patient Own Med: Crestor ( Rosuvastatin) 5 Mg 1 each PO QHS [facility] Last Admin: 11/03/16 22:52 Dose: 1 each Patient Own Med: Estrace Vaginal Cream 1 each MC MoFr [facility] Last Admin: 10/31/16 10:28 Dose: Not Given Patient Own Med: (Primidone 50 Mg) 1 each PO QHS [facility] Last Admin: 11/03/16 22:52 Dose: 1 each Patient Own Med: (Propranolol Er 80 Mg) 1 each PO QHS [facility] Last Admin: 11/03/16 22:52 Dose: 1 each Patient Own Med: Triamcinolone 0.5% Cream 1 each PO BID PRN PRN Reason: IRRITATION Sucralfate (Carafate) 2 g PO BID [facility] Last Admin: 11/04/16 09:44 Dose: 2 g Tapentadol (Nucynta) 50 mg PO Q4H PRN PRN Reason: Pain - General Last Admin: 10/28/16 09:08 Dose: 50 mg Trimethoprim/Sulfamethoxazole (Bactrim Ds) 1 each PO BID [facility] Stop: 11/10/16 16:16 Last Admin: 11/04/16 09:44 Dose: 1 each Vitamin D (Vitamin D3) 2,000 unit PO DAILY [facility] Last Admin: 11/04/16 09:46 Dose: 2,000 unit Objective - Vital Signs Vital Signs: Vital Signs - Last 24 Hrs Temp Pulse Resp BP Pulse Ox 11/04/16 09:58 98.0 F 72 16 121/63 96 11/03/16 17:35 95 - General General Appearance: Alert, Oriented x3, Cooperative, No acute distress - Head Head exam: Atraumatic, Normocephalic - Eye Eye exam: Normal appearance - ENT ENT exam: Normal exam Ear exam: Normal external inspection Mouth exam: Normal external inspection - Neck Neck exam: Normal inspection, Full ROM - Respiratory Respiratory exam: Normal lung sounds bilaterally. negative: Prolonged expiratory, Wheezes - Cardiovascular Cardiovascular Exam: Regular rate, Normal rhythm - GI/Abdominal GI/Abdominal exam: Soft, Normal bowel sounds - Rectal Rectal exam: Deferred - exam: Deferred - Extremities Extremities exam: negative: Calf tenderness, Full ROM (not of RLE), Pedal edema , Tenderness - Back Back exam: Reports: Normal inspection - Neurological Neurological exam: Abnormal gait (due to pain level), Alert, Oriented X3 H&P Results - Labs Result Diagrams: 10/31/16 06:05 11/03/16 06:00 Discharge Potential - Discharge Needs Community Services Used Prior to Admission: None Patient Discharge Plan Description: Return Home Plan - Swing Bed Certification Initial Certification Due: 10/27/16 14 Day Re-Cert Due: 11/10/16 44 Day Re-Cert Due: 12/10/16 74 Day Re-Cert Due: 01/09/17 - Detailed Diagnosis and Plan (1) DVT prophylaxis Current Visit: Yes Status: Acute Base Code: [id number] - Comment: 11/03/16: Eliquis 2.5 mg bid. (2) Full code status Current Visit: Yes Status: Acute Base Code: Z78.9 - OTHER SPECIFIED HEALTH STATUS Comment: 11/03/16: patient is full code (3) S/P hip hemiarthroplasty Current Visit: Yes Status: Acute Base Code: Z96.649 - PRESENCE OF UNSPECIFIED ARTIFICIAL HIP JOINT Comment: 11/03/16: Patient is a 80 yo female s/p right hip ORIF. Will shedule tylenol 1000mg TID for pain relief. D/c codine since patient thinks it may be upsetting her stomach. Continue Elquis 2.5 mg BID for adequate DVT prophylaxis. PT/OT to assist with increasing physical strength and functioning. (4) Weakness Current Visit: Yes Status: Acute Base Code: R53.1 - WEAKNESS Comment: 11/03/16: 2/2 right hip surgery. PT/OT to help build physical strength and functioning. Feels has recovered 50% of baseline (5) Decreased appetite Current Visit: Yes Status: Acute Base Code: R63.0 - ANOREXIA Comment: 11/03- started remeron to bump appetitie and improve mood. counseled on trying for more intake. Family also encouraging same.
--- NOTE | 2016-11-04 17:21 | Physical Therapy Tx Note ---
Physical Therapy Tx Note - Treatment Note Tolerated: Good Total Time Spent With Patient: 35 Physical Therapy Tx Note: Detail (Patient was sitting up in bed when PT arrived. Patient transferred from supine to sit and sit to stand with SBAx1 and ambulated 11' with FWW with SBAx1 to WC. SPT brought patient up to rehab floor for therapy session. Educated patient on proper gait pattern with stairs. Pt ascended and descended 2 6' steps with B UE support and SBAx2. Demonstrated appropriate form with minimal verbal cueing. Pt reported increased exertion with stairs, but felt they were manageable. Pt ambulated 10' to mat table with FWW with SBAx1 to complete ther ex. Therapeutic exercises included: alternating hip flexion x8, B seated hip adduction with ball x10, B hip abduction with red theraband x15, and B knee flexion and extension with red theraband x10. Required intermittent verbal cueing to maintain a controlled pace with exercises. Able to progress patient to SBA with bed mobility, transfers, and ambulation. Met goal to ambulate 2-3 steps with supervision. Plan to progress to 1 step without railing with TBD level of assistance to facilitate home environment. Also plan to educate or other family member on how to help with stairs. Consider car transfer education.) Physical Therapy Problem List: Detail (1) Decreased LE strength 2) Decreased ability to complete sustained physical activity 3) The patient requires assist with mobility 4) Non ambulatory) Physical Therapy Goals: 1) The patient will ambulate with assistive device 150 feet WBAT on the R independently. 2) The patient will ambulate on 2 to 3 steps with supervision. 3) The patient will be independent with bed mobility. 4) The patient will be independent with all transfers. 5) Increased LE strength to 3+/5 in proximal R LE ms groups, for stability w/ambulation. 6) Independent with THR precautions and HEP of LE strengthening exercises. Prognosis: Good Physical Therapy Plan: PT M-F 1 to 2 times for bed mobility, transfer training, gait training, LE strengthening exercises.
[2016-11-04] MEDS: ESTRACE VAGINAL MC SCH (19:06)
[2016-11-04] MEDS: DILTIAZEM 180MG CR CAPSULE PO SCH (21:15)
[2016-11-04] MEDS: MIRTAZAPINE 15 MG TABLET PO SCH (21:16)
[2016-11-04] MEDS: PROPRANOLOL 80 MG PO SCH (21:21)
[2016-11-04] MEDS: CRESTOR 5 MG PO SCH (21:21)
[2016-11-04] MEDS: PRIMIDONE 50 MG PO SCH (21:21)
[2016-11-05] MEDS: ACETAMINOPHEN 500 MG TABLET PO SCH ×3 (07:12→21:51)
[2016-11-05] MEDS: PANTOPRAZOLE SODIUM 40 MG TABLET PO SCH (07:13)
[2016-11-05] MEDS: CALCIUM CARBONATE 500 MG TAB.CHEW PO SCH (08:33)
[2016-11-05] MEDS: APIXABAN 2.5MG TABLET PO SCH ×2 (10:17→21:50)
[2016-11-05] MEDS: LISINOPRIL 20 MG TABLET PO SCH (10:17)
[2016-11-05] MEDS: CHOLECALCIFEROL 1,000 UNIT TABLET PO SCH (10:17)
[2016-11-05] MEDS: ASPIRIN 81 MG TABEC PO SCH (10:18)
[2016-11-05] MEDS: SUCRALFATE 1 G/10 ML UD PO SCH ×2 (10:18→21:53)
[2016-11-05] MEDS: TMP/SMZ 160MG/800MG TAB PO SCH ×2 (10:18→21:47)
[2016-11-05] MEDS: DOCUSATE SODIUM 100 MG CAPSULE PO SCH ×2 (10:18→21:50)
[2016-11-05] MEDS: DILTIAZEM 180MG CR CAPSULE PO SCH (21:50)
[2016-11-05] MEDS: MIRTAZAPINE 15 MG TABLET PO SCH (21:51)
[2016-11-05] MEDS: PROPRANOLOL 80 MG PO SCH (21:52)
[2016-11-05] MEDS: CRESTOR 5 MG PO SCH (21:52)
[2016-11-05] MEDS: PRIMIDONE 50 MG PO SCH (21:53)
[2016-11-05] MEDS: DIPHENHYDRAMINE HCL 25 MG CAPSULE PO PRN (23:57)
[2016-11-06] MEDS: ONDANSETRON 4 MG ODT TABLET SL PRN (02:05)
[2016-11-06] MEDS: ACETAMINOPHEN 500 MG TABLET PO SCH ×3 (06:39→22:03)
[2016-11-06] MEDS: PANTOPRAZOLE SODIUM 40 MG TABLET PO SCH (06:39)
[2016-11-06] MEDS: CALCIUM CARBONATE 500 MG TAB.CHEW PO SCH (07:26)
[2016-11-06] MEDS: TMP/SMZ 160MG/800MG TAB PO SCH ×2 (09:43→21:43)
[2016-11-06] MEDS: CHOLECALCIFEROL 1,000 UNIT TABLET PO SCH (09:47)
[2016-11-06] MEDS: LISINOPRIL 20 MG TABLET PO SCH (09:47)
[2016-11-06] MEDS: BISACODYL 5 MG TABLET PO PRN (09:47)
[2016-11-06] MEDS: SUCRALFATE 1 G/10 ML UD PO SCH ×2 (09:47→22:05)
[2016-11-06] MEDS: APIXABAN 2.5MG TABLET PO SCH ×2 (09:48→22:06)
[2016-11-06] MEDS: ASPIRIN 81 MG TABEC PO SCH (09:49)
[2016-11-06] MEDS: DOCUSATE SODIUM 100 MG CAPSULE PO SCH ×2 (09:49→22:06)
[2016-11-06] MEDS: PRIMIDONE 50 MG PO SCH (21:44)
[2016-11-06] MEDS: DILTIAZEM 180MG CR CAPSULE PO SCH (22:05)
[2016-11-06] MEDS: CRESTOR 5 MG PO SCH (22:06)
[2016-11-06] MEDS: PROPRANOLOL 80 MG PO SCH (22:07)
[2016-11-06] MEDS: MIRTAZAPINE 15 MG TABLET PO SCH (22:08)
[2016-11-07] MEDS: PANTOPRAZOLE SODIUM 40 MG TABLET PO SCH (06:34)
[2016-11-07] MEDS: ACETAMINOPHEN 500 MG TABLET PO SCH ×3 (06:34→23:22)
--- NOTE | 2016-11-07 09:44 | Physical Therapy Tx Note ---
Physical Therapy Tx Note - Treatment Note Tolerated: Fair Total Time Spent With Patient: 30 Physical Therapy Tx Note: Detail (Patient was sitting upright in chair when PT arrived. Patient ambulated 11' with FWW with SBAx1. Pt reported feeling "hot" and asked to rest; independently transferred to . Nursing examined questionnable rash in R lumbosacral area. After 3 minutes, pt felt "better." Pt was transferred in to room #22 to complete tub transfer. SPT educated patient on safe tub transfer with shower chair via demonstration and verbal explanation. Pt demonstrated safe transfer with minimal verbal cueing; required minAx1 to help RLE into tub. Pt did not require assistance with LE out of tub. From sit to stand, pt required minAx1 and CGAx1 due to low seated starting position. Pt reported feeling "hot" again, so additional therapy was deferred to the afternoon. Disinfected bathtub per standard protocol. Therapy will be conducted downstairs until further follow up with attending physician.) Physical Therapy Problem List: Detail (1) Decreased LE strength 2) Decreased ability to complete sustained physical activity 3) The patient requires assist with mobility 4) Non ambulatory) Physical Therapy Goals: 1) The patient will ambulate with assistive device 150 feet WBAT on the R independently. 2) The patient will ambulate on 2 to 3 steps with supervision. 3) The patient will be independent with bed mobility. 4) The patient will be independent with all transfers. 5) Increased LE strength to 3+/5 in proximal R LE ms groups, for stability w/ambulation. 6) Independent with THR precautions and HEP of LE strengthening exercises. Physical Therapy Plan: PT M-F 1 to 2 times for bed mobility, transfer training, gait training, LE strengthening exercises.
[2016-11-07] MEDS: CALCIUM CARBONATE 500 MG TAB.CHEW PO SCH (10:35)
[2016-11-07] MEDS: SUCRALFATE 1 G/10 ML UD PO SCH ×2 (10:36→23:17)
--- NOTE | 2016-11-07 10:36 | Physician Progress Note ---
Subjective - Date Date of Progress Note: 11/07/16 - Admitting Diagnosis Diagnosis: Status post right babatunde-hip arthroplasty. Herpes Zoster - Subjective Events since last encounter: Nursing reports "rash" to right side of lower back x 4 days. Patient does report pain and tenderness to area, sensitivity to clothing. Has had shingles in the past (20 years ago) on her face. Also, patient has refused Bactrim today (day 04/27) due to nausea and dry heaves. Nursing Care Plan Problem List Activity Intolerance (Swing Bed) Start: 10/27/16 16: 39 Freq: Status: Active Created 10/27/16 16:39 MMT (Rec: 10/27/16 16:39 MMT [id number]) Knowledge Deficit (Swing Bed) Start: 10/27/16 16: 39 Freq: Status: Active Created 10/27/16 16:39 MMT (Rec: 10/27/16 16:39 MMT [id number]) Nutrition Less than Body Requirements Start: 10/27/16 18: 11 Freq: Status: Active Created 10/27/16 18:11 MMT (Rec: 10/27/16 18:11 MMT [id number]) Pain (Swing Bed) Start: 10/27/16 16: 39 Freq: Status: Active Created 10/27/16 16:39 MMT (Rec: 10/27/16 16:39 MMT [id number]) Edit Status 10/29/16 13:50 SAF (Rec: 10/29/16 13:50 SAF [id number]) Active=>Complete Edit Status 10/30/16 05:07 KJJ (Rec: 10/30/16 05:07 KJJ [id number]) Complete=>Active Skin Integrity, Impaired (Swing Bed) Start: 10/27/16 18: 11 Freq: Status: Active Created 10/27/16 18:11 MMT (Rec: 10/27/16 18:11 MMT [id number]) - Subjective Detail Comment: No additional complaints except as noted below Skin: Reports: Lesions, Rash General - Cognitive Patterns Speech: Normal, Soft Thought Process: Intact Thought Content: Normal - Communication Select best description of speech pattern: Clear Speech Ability to express ideas and wants: Understood Understanding verbal content: Understands - Mood and Behavior Patterns Appearance: Well Groomed, Disheveled Mood: Normal, Depressed (remeron started 2 weeks ago) Attitude: Cooperative Motor Activity: Calm Affect: Appropriate Hallucinations: Denies - Physical Functioning Activity Level: Up with assist x1 Turning: With partial assist ROM Ability: Moves all extremities Assistive Devices: 2 Wheel Walker Activity Level Comment: Went upstairs with PT today, up in chair for lunch Ambulation Ability: Needs Assist Bed Mobility: Needs Assist Transfer Ability: Independent Bathing Ability: Needs Assist Personal Hygiene: Independent Dressing Ability: Needs Assist Eating (Feeding) Ability: Independent Toileting Ability: Needs Assist Administer Own Medication: Needs Assist Care Ability Comment: needs encouragement with food and drinking water/ fluids. [ End ] - Continence Bowel Pattern: Normal for Patient Bladder Pattern: Retention Meds/Allergies - Allergies Allergies Allergy/AdvReac Type Severity Reaction Status Date / Time hydrocodone AdvReac NAUSEA Verified 10/28/16 10:28 - Active Medications Current Medications Acetaminophen (Tylenol 500mg Tab) 1,000 mg PO Q8HR [facility] Last Admin: 11/07/16 06:34 Dose: 1,000 mg Acetaminophen/Codeine Phosphate (Tylenol #3) 1 udtab PO Q4H PRN PRN Reason: Pain - General Last Admin: 10/29/16 20:28 Dose: 1 udtab Al Hydroxide/Mg Hydroxide (Maalox) 30 ml PO Q4H PRN PRN Reason: GI UPSET Apixaban (Eliquis) 2.5 mg PO BID [facility] Last Admin: 11/06/16 22:06 Dose: 2.5 mg Aspirin (Ecotrin (Ec)) 81 mg PO DAILY [facility] Last Admin: 11/06/16 09:49 Dose: 81 mg Bisacodyl (Dulcolax) 5 mg PO DAILY PRN PRN Reason: Constipation Last Admin: 11/06/16 09:47 Dose: 5 mg Calcium Carbonate/Glycine (Tums) [facility] [place] Last Admin: 11/06/16 07:26 Dose: 1,000 mg Diltiazem HCl (Cardizem Cd) 180 mg PO QHS [facility] Last Admin: 11/06/16 22:05 Dose: 180 mg Diphenhydramine HCl (Benadryl Capsule) 25 mg PO QHS PRN PRN Reason: SLEEP Last Admin: 11/05/16 23:57 Dose: 25 mg Docusate Sodium (Colace) 100 mg PO BID [facility] Last Admin: 11/06/16 22:06 Dose: 100 mg Lisinopril (Zestril) 20 mg PO DAILY [facility] Last Admin: 11/06/16 09:47 Dose: 20 mg Magnesium Hydroxide (Milk Of Magnesium) 30 ml PO DAILY PRN PRN Reason: INDIGESTION Last Admin: 11/04/16 09:43 Dose: 30 ml Mirtazapine (Remeron) 30 mg PO QHS [facility] Last Admin: 11/06/16 22:08 Dose: 30 mg Ondansetron HCl (Zofran Odt) 4 mg SL Q8H PRN PRN Reason: NAUSEA/VOMITING Last Admin: 11/06/16 02:05 Dose: 4 mg Pantoprazole Sodium (Protonix) [facility] Last Admin: 11/07/16 06:34 Dose: 40 mg Patient Own Med: Crestor ( Rosuvastatin) 5 Mg 1 each PO QHS [facility] Last Admin: 11/06/16 22:06 Dose: 1 each Patient Own Med: E[facility]inal [facility] Last Admin: 11/04/16 19:06 Dose: Not Given Patient Own Med: (Primidone 50 Mg) 1 each PO QHS [facility] Last Admin: 11/06/16 21:44 Dose: Not Given Patient Own Med: (Propranolol Er 80 Mg) 1 each PO QHS [facility] Last Admin: 11/06/16 22:07 Dose: 1 each Patient Own Med: Triamcinolone 0.5% Cream 1 each PO BID PRN PRN Reason: IRRITATION Sucralfate (Carafate) 2 g PO BID [facility] Last Admin: 11/06/16 22:05 Dose: 2 g Tapentadol (Nucynta) 50 mg PO Q4H PRN PRN Reason: Pain - General Last Admin: 10/28/16 09:08 Dose: 50 mg Trimethoprim/Sulfamethoxazole (Bactrim Ds) 1 each PO BID [facility] Stop: 11/10/16 16:16 Last Admin: 11/06/16 21:43 Dose: Not Given Vitamin D (Vitamin D3) 2,000 unit PO DAILY [facility] Last Admin: 11/06/16 09:47 Dose: 2,000 unit Objective - Vital Signs Vital Signs: Vital Signs - Last 24 Hrs Temp Pulse Resp BP BP Pulse Ox 11/07/16 09:21 97.8 F 92/48 11/07/16 08:29 97.8 F 84 16 92/48 94 L - General General Appearance: Alert, Oriented x3, Cooperative, No acute distress - Head Head exam: Atraumatic, Normocephalic - Eye Eye exam: Normal appearance - ENT ENT exam: Normal exam Ear exam: Normal external inspection Mouth exam: Normal external inspection - Neck Neck exam: Normal inspection, Full ROM - Respiratory Respiratory exam: Normal lung sounds bilaterally. negative: Prolonged expiratory, Wheezes - Cardiovascular Cardiovascular Exam: Regular rate, Normal rhythm - GI/Abdominal GI/Abdominal exam: Soft, Normal bowel sounds - Rectal Rectal exam: Deferred - exam: Deferred - Extremities Extremities exam: negative: Calf tenderness, Full ROM (not of RLE), Pedal edema , Tenderness - Back Back exam: Reports: Normal inspection - Neurological Neurological exam: Abnormal gait (due to pain level), Alert, Oriented X3 - Psychiatric Psychiatric exam: Flat affect - Skin Skin exam: Vesicles (tender vesicular lesion with deep surrounding errythema along right L4 dermatome) H&P Results - Labs Result Diagrams: 10/31/16 06:05 11/03/16 06:00 Discharge Potential - Discharge Needs Community Services Used Prior to Admission: None Patient Discharge Plan Description: Return Home Plan - Swing Bed Certification Initial Certification Due: 10/27/16 14 Day Re-Cert Due: 11/10/16 44 Day Re-Cert Due: 12/10/16 74 Day Re-Cert Due: 01/09/17 - Detailed Diagnosis and Plan (1) Herpes zoster Current Visit: Yes Status: Acute Qualifiers: Herpes zoster complications: without complications Qualified Code(s) : B02.9 - Zoster without complications Base Code: B02.9 - ZOSTER WITHOUT COMPLICATIONS Comment: 11/07/16 Will begin Acyclovir 400mg TID x 7 days (based on formulary and availability) Lidoderm patch on 12 hrs, off for 12 hours x 7 days for pain (2) UTI (urinary tract infection) Current Visit: Yes Status: Acute Base Code: N39.0 - URINARY TRACT INFECTION, SITE NOT SPECIFIED Comment: 11/07/16 Denies any urinary complaints Afebrile Will DC Bactrim due to GI intolerance
[2016-11-07] MEDS: TMP/SMZ 160MG/800MG TAB PO SCH (10:37)
[2016-11-07] MEDS: LISINOPRIL 20 MG TABLET PO SCH (10:38)
[2016-11-07] MEDS: DOCUSATE SODIUM 100 MG CAPSULE PO SCH ×2 (10:38→23:18)
[2016-11-07] MEDS: APIXABAN 2.5MG TABLET PO SCH ×2 (10:39→23:19)
[2016-11-07] MEDS: ASPIRIN 81 MG TABEC PO SCH (10:39)
[2016-11-07] MEDS: CHOLECALCIFEROL 1,000 UNIT TABLET PO SCH (10:40)
[2016-11-07] MEDS: ESTRACE VAGINAL MC SCH (10:45)
[2016-11-07] MEDS ORDERED: ACYCLOVIR 200 MG CAPSULE PO SCH (12:00)
[2016-11-07] MEDS: LIDOCAINE 5% PATCH TOP SCH (14:34)
[2016-11-07] MEDS: ACYCLOVIR 200 MG CAPSULE PO SCH ×3 (14:35→23:28)
--- NOTE | 2016-11-07 14:47 | Occupational Therapy Tx Note ---
Occupational Therapy Tx Note - Treatment Note Tolerated: Other (Pt not wanting to engage in therapy at this time) Occupational Therapy Treatment Note: Detail (Patient supine in bed upon arrival with two family members present. She informed therapist of her recent dx of Herpes zoster and not wanting to engage in therapy this afternoon. Family members that were present agreed. Hold OT for today.) Occupational Therapy Problem List: Detail (1. Decreased Ind with functional mobility needed for safe and Ind ADLs. 2. Decreased Ind with dressing. 3. Decreased Ind with showering. 4. Decreased endurance and tolerance to activity.) Occupational Therapy Goals: 1. Pt will be Ind with bed mobility and transfers. 2. Pt will be Ind with total body dressing with use of adaptive equipment as needed. 3. Pt will be Ind with showering 4. Pt will demonstrate improved endurance and activity tolerance to allow safe and Ind ADLs. Occupational Therapy Plan: OT 2-4 days per week to address self cares, functional mobility, endurance, safety and Ind with ADLs/IADLs to allow return home with spouse.
[2016-11-07] MEDS: DILTIAZEM 180MG CR CAPSULE PO SCH (23:18)
[2016-11-07] MEDS: CRESTOR 5 MG PO SCH (23:19)
[2016-11-07] MEDS: PRIMIDONE 50 MG PO SCH (23:19)
[2016-11-07] MEDS: PROPRANOLOL 80 MG PO SCH (23:20)
[2016-11-07] MEDS: MIRTAZAPINE 15 MG TABLET PO SCH (23:20)
[2016-11-07] MEDS: REMOVE PATCH 1 EACH MISC TD SCH (23:21)
[2016-11-08] MEDS: ACETAMINOPHEN 500 MG TABLET PO SCH ×3 (06:14→22:03)
[2016-11-08] MEDS: PANTOPRAZOLE SODIUM 40 MG TABLET PO SCH (06:14)
[2016-11-08] MEDS: ACYCLOVIR 200 MG CAPSULE PO SCH ×5 (06:15→22:03)
--- NOTE | 2016-11-08 08:21 | Occupational Therapy Tx Note ---
Occupational Therapy Tx Note - Treatment Note Tolerated: Fair Total Time Spent With Patient: 50 (ADL) Occupational Therapy Treatment Note: Detail (S: Pt reports stomach pain continues. O: Supine to sit Indly. Sit to stand and amb to shower with 2 wheeled walker and SBA. Doffed pants, briefs, socks and shirt with powder coat painter and assist for catheter. Pt completed showering in sitting with verbal cues for modified technique for right foot. Pt able to dry self with verbal cues. Amb to chair with 2 wheeled walker Indly. Donned shirt Indly, donned brief and pants with powder coat painter and verbal cues for catheter. Donned slides Indly. Combed hair Indly. A: Modified Ind with dressing using adaptive equipment, modified Ind with showering, pt continues to be very fatigued with ADL activities although her strength is slowly improving.) Occupational Therapy Problem List: Detail (1. Decreased Ind with functional mobility needed for safe and Ind ADLs. 2. Decreased Ind with dressing. 3. Decreased Ind with showering. 4. Decreased endurance and tolerance to activity.) Occupational Therapy Goals: 1. Pt will be Ind with bed mobility and transfers. 2. Pt will be Ind with total body dressing with use of adaptive equipment as needed. 3. Pt will be Ind with showering 4. Pt will demonstrate improved endurance and activity tolerance to allow safe and Ind ADLs. Prognosis: Good Occupational Therapy Plan: OT 2-4 days per week to address self cares, functional mobility, endurance, safety and Ind with ADLs/IADLs to allow return home with spouse.
[2016-11-08] MEDS: LIDOCAINE 5% PATCH TOP SCH (09:45)
[2016-11-08] MEDS: LISINOPRIL 20 MG TABLET PO SCH (09:45)
[2016-11-08] MEDS: BISACODYL 5 MG TABLET PO PRN (09:45)
[2016-11-08] MEDS: CHOLECALCIFEROL 1,000 UNIT TABLET PO SCH (09:45)
[2016-11-08] MEDS: ASPIRIN 81 MG TABEC PO SCH (09:47)
[2016-11-08] MEDS: APIXABAN 2.5MG TABLET PO SCH ×2 (09:47→22:00)
[2016-11-08] MEDS: SUCRALFATE 1 G/10 ML UD PO SCH ×2 (09:48→22:00)
[2016-11-08] MEDS: DOCUSATE SODIUM 100 MG CAPSULE PO SCH ×2 (09:48→22:00)
[2016-11-08] MEDS: CALCIUM CARBONATE 500 MG TAB.CHEW PO SCH (09:48)
--- NOTE | 2016-11-08 12:03 | Physical Therapy Tx Note ---
Physical Therapy Tx Note - Treatment Note Tolerated: Fair Total Time Spent With Patient: 20 Physical Therapy Tx Note: Detail (Patient was lying in bed when PT arrived. PT session emphasized progression of gait training. All transfers were completed by patient independently; required min A x1 for getting RLE into bed at end of session due to fatigue. Pt ambulated with FWW with CGAx1 15' to scale for daily weight (tennis shoes on). Pt reported having an upset stomach with ambulation; improved with rest (3 min) and with johnny cracker consumption. Pt ambulated another 10' and reported increase in nausea sx, also alleviated with rest (2 min ). Pt ambulated a third time for a total of 15'; complained of nausea again. Pt tolerance to activity was limited today due to nausea sx. She appears to do better with setting a distance goal to accomplish (i.e., walk to next door). Plan to progress distance ambulated with short term goal to ambulate to nurses station with FWW with SBAx1 by .) Physical Therapy Problem List: Detail (1) Decreased LE strength 2) Decreased ability to complete sustained physical activity 3) The patient requires assist with mobility 4) Non ambulatory) Physical Therapy Goals: 1) The patient will ambulate with assistive device 150 feet WBAT on the R independently. 2) The patient will ambulate on 2 to 3 steps with supervision. 3) The patient will be independent with bed mobility. 4) The patient will be independent with all transfers. 5) Increased LE strength to 3+/5 in proximal R LE ms groups, for stability w/ambulation. 6) Independent with THR precautions and HEP of LE strengthening exercises. Physical Therapy Plan: PT M-F 1 to 2 times for bed mobility, transfer training, gait training, LE strengthening exercises.
[2016-11-08] MEDS: DILTIAZEM 180MG CR CAPSULE PO SCH (22:00)
[2016-11-08] MEDS: CRESTOR 5 MG PO SCH (22:00)
[2016-11-08] MEDS: PRIMIDONE 50 MG PO SCH (22:01)
[2016-11-08] MEDS: PROPRANOLOL 80 MG PO SCH (22:01)
[2016-11-08] MEDS: REMOVE PATCH 1 EACH MISC TD SCH (22:02)
[2016-11-08] MEDS: MIRTAZAPINE 15 MG TABLET PO SCH (22:02)
[2016-11-09] MEDS: ACETAMINOPHEN 500 MG TABLET PO SCH ×3 (06:15→21:07)
[2016-11-09] MEDS: PANTOPRAZOLE SODIUM 40 MG TABLET PO SCH (06:16)
[2016-11-09] MEDS: ACYCLOVIR 200 MG CAPSULE PO SCH ×5 (06:16→21:07)
--- NOTE | 2016-11-09 09:20 | Physician Progress Note ---
Addendum entered and electronically signed by IAN BRUNO N.P. 11/09/16 10:46: Per nursing intake has continued to be minimal with patient report as her baseline. Weight continues to trend down. Daughter has committed to continuing to encourage PO intake by offering several different food choices, patient has also committed to frequent small meals as tolerates. PT/OT have reported she has met her goals and is safe for upcoming discharge with home PT/OT/Nursing. Edmond to remain in place until outpatient follow up with Dr Britton. Original Note: Subjective - Date Date of Progress Note: 11/09/16 - Admitting Diagnosis Diagnosis: Status post right babatunde-hip arthroplasty. Herpes Zoster - Subjective Events since last encounter: Developed Herpes Zoster since last note, currently taking Acyclovir 800mg 5x/ day and tolerating well, reports only minimal pain while laying on area, otherwise reports "if I didn't know I had shingles I wouldn't know anything was there". Nursing has been dividing medications into smaller amounts at a times and patient reports nausea and dry heaves are much improved. No other new concerns or questions. Nursing Care Plan Problem List Activity Intolerance (Swing Bed) Start: 10/27/16 16: 39 Freq: Status: Active Created 10/27/16 16:39 MMT (Rec: 10/27/16 16:39 MMT [id number]) Knowledge Deficit (Swing Bed) Start: 10/27/16 16: 39 Freq: Status: Active Created 10/27/16 16:39 MMT (Rec: 10/27/16 16:39 MMT [id number]) Nutrition Less than Body Requirements Start: 10/27/16 18: 11 Freq: Status: Active Created 10/27/16 18:11 MMT (Rec: 10/27/16 18:11 MMT [id number]) Pain (Swing Bed) Start: 10/27/16 16: 39 Freq: Status: Active Created 10/27/16 16:39 MMT (Rec: 10/27/16 16:39 MMT [id number]) Edit Status 10/29/16 13:50 SAF (Rec: 10/29/16 13:50 SAF [id number]) Active=>Complete Edit Status 10/30/16 05:07 KJJ (Rec: 10/30/16 05:07 KJJ [id number]) Complete=>Active Skin Integrity, Impaired (Swing Bed) Start: 10/27/16 18: 11 Freq: Status: Active Created 10/27/16 18:11 MMT (Rec: 10/27/16 18:11 MMT [id number]) - Subjective Detail Comment: No additional complaints except as noted below Constitutional: Reports: As per HPI Eyes: Reports: As per HPI ENT: Reports: As per HPI Cardiovascular: Reports: As per HPI Endocrine: Reports: As per HPI Gastrointestinal: Reports: As per HPI Genitourinary: Reports: As per HPI Musculoskeletal: Reports: As per HPI Skin: Reports: As per HPI Neurological: Reports: As per HPI Psychiatric: Reports: As per HPI Hematological/Lymphatic: Reports: As per HPI General - Cognitive Patterns Speech: Normal, Soft Thought Process: Intact Thought Content: Normal - Communication Select best description of speech pattern: Clear Speech Ability to express ideas and wants: Understood Understanding verbal content: Understands - Mood and Behavior Patterns Appearance: Well Groomed, Disheveled Mood: Normal, Depressed (remeron started 2 weeks ago) Attitude: Cooperative Motor Activity: Calm Affect: Appropriate Hallucinations: Denies - Physical Functioning Activity Level: Up with assist x1 Turning: With partial assist ROM Ability: Moves all extremities Assistive Devices: 2 Wheel Walker Activity Level Comment: Walked in hallway with pt and up in chair for breakfast today. Ambulation Ability: Needs Assist Bed Mobility: Needs Assist Transfer Ability: Independent Bathing Ability: Needs Assist Personal Hygiene: Independent Dressing Ability: Needs Assist Eating (Feeding) Ability: Independent Toileting Ability: Needs Assist Administer Own Medication: Needs Assist Care Ability Comment: needs encouragement with food and drinking water/ fluids. [ End ] - Continence Bowel Pattern: Normal for Patient Bladder Pattern: Retention Meds/Allergies - Allergies Allergies Allergy/AdvReac Type Severity Reaction Status Date / Time hydrocodone AdvReac NAUSEA Verified 10/28/16 10:28 - Active Medications Current Medications Acetaminophen (Tylenol 500mg Tab) 1,000 mg PO Q8HR [facility] Last Admin: 11/09/16 06:15 Dose: 1,000 mg Acetaminophen/Codeine Phosphate (Tylenol #3) 1 udtab PO Q4H PRN PRN Reason: Pain - General Last Admin: 10/29/16 20:28 Dose: 1 udtab Acyclovir (Zovirax) 800 mg PO 5XD [facility] Last Admin: 11/09/16 06:16 Dose: 800 mg Al Hydroxide/Mg Hydroxide (Maalox) 30 ml PO Q4H PRN PRN Reason: GI UPSET Apixaban (Eliquis) 2.5 mg PO BID [facility] Last Admin: 11/08/16 22:00 Dose: 2.5 mg Aspirin (Ecotrin (Ec)) 81 mg PO DAILY [facility] Last Admin: 11/08/16 09:47 Dose: 81 mg Bisacodyl (Dulcolax) 5 mg PO DAILY PRN PRN Reason: Constipation Last Admin: 11/08/16 09:45 Dose: 5 mg Calcium Carbonate/Glycine (Tums) [facility] [place] Last Admin: 11/08/16 09:48 Dose: Not Given Diltiazem HCl (Cardizem Cd) 180 mg PO QHS [facility] Last Admin: 11/08/16 22:00 Dose: 180 mg Diphenhydramine HCl (Benadryl Capsule) 25 mg PO QHS PRN PRN Reason: SLEEP Last Admin: 11/05/16 23:57 Dose: 25 mg Docusate Sodium (Colace) 100 mg PO BID [facility] Last Admin: 11/08/16 22:00 Dose: 100 mg Lidocaine (Lidoderm) 1 each TOP Q24H [facility] Last Admin: 11/08/16 09:45 Dose: 1 each Lisinopril (Zestril) 20 mg PO DAILY [facility] Last Admin: 11/08/16 09:45 Dose: 20 mg Magnesium Hydroxide (Milk Of Magnesium) 30 ml PO DAILY PRN PRN Reason: INDIGESTION Last Admin: 11/04/16 09:43 Dose: 30 ml Mirtazapine (Remeron) 30 mg PO QHS [facility] Last Admin: 11/08/16 22:02 Dose: 30 mg Miscellaneous (Remove Patch) 1 each TD Q24H [facility] Last Admin: 11/08/16 22:02 Dose: 1 each Ondansetron HCl (Zofran Odt) 4 mg SL Q8H PRN PRN Reason: NAUSEA/VOMITING Last Admin: 11/06/16 02:05 Dose: 4 mg Pantoprazole S[facility] ([facility]tonix) [facility] Last Admin: 11/09/16 06:16 Dose: 40 mg Patient Own Med: Crestor ( Rosuvastatin) 5 Mg 1 each PO QHS [facility] Last Admin: 11/08/16 22:00 Dose: 1 each Patient Own Med: Estrace Vaginal Cream 1 each MC MoFr [facility] Last Admin: 11/07/16 10:45 Dose: Not Given Patient Own Med: (Primidone 50 Mg) 1 each PO QHS [facility] Last Admin: 11/08/16 22:01 Dose: 1 each Patient Own Med: (Propranolol Er 80 Mg) 1 each PO QHS [facility] Last Admin: 11/08/16 22:01 Dose: 1 each Patient Own Med: Triamcinolone 0.5% Cream 1 each PO BID PRN PRN Reason: IRRITATION Sucralfate (Carafate) 2 g PO BID [facility] Last Admin: 11/08/16 22:00 Dose: 2 g Tapentadol (Nucynta) 50 mg PO Q4H PRN PRN Reason: Pain - General Last Admin: 10/28/16 09:08 Dose: 50 mg Vitamin D (Vitamin D3) 2,000 unit PO DAILY [facility] Last Admin: 11/08/16 09:45 Dose: 2,000 unit Objective - Vital Signs Vital Signs: Vital Signs - Last 24 Hrs Temp Pulse Resp BP Pulse Ox 11/09/16 07:36 97.5 F L 76 12 111/59 96 11/08/16 09:29 98.2 F 76 16 97/51 96 - General General Appearance: Alert, Oriented x3, Cooperative, No acute distress - Head Head exam: Atraumatic, Normocephalic - Eye Eye exam: Normal appearance - ENT ENT exam: Normal exam Ear exam: Normal external inspection Mouth exam: Normal external inspection - Neck Neck exam: Normal inspection, Full ROM - Respiratory Respiratory exam: Normal lung sounds bilaterally. negative: Prolonged expiratory, Wheezes - Cardiovascular Cardiovascular Exam: Regular rate, Normal rhythm - GI/Abdominal GI/Abdominal exam: Soft, Normal bowel sounds - Rectal Rectal exam: Deferred - exam: Deferred - Extremities Extremities exam: negative: Calf tenderness, Full ROM (not of RLE), Pedal edema , Tenderness - Back Back exam: Reports: Normal inspection - Neurological Neurological exam: Abnormal gait (due to pain level), Alert, Oriented X3 - Psychiatric Psychiatric exam: Flat affect - Skin Skin exam: Vesicles (tender vesicular lesion with deep surrounding errythema along right L4 dermatome) H&P Results - Labs Result Diagrams: 10/31/16 06:05 11/03/16 06:00 Discharge Potential - Discharge Needs Community Services Used Prior to Admission: None Patient Discharge Plan Description: Return Home Plan - Swing Bed Certification Initial Certification Due: 10/27/16 14 Day Re-Cert Due: 11/10/16 44 Day Re-Cert Due: 12/10/16 74 Day Re-Cert Due: 01/09/17 - Detailed Diagnosis and Plan (1) Herpes zoster Current Visit: Yes Status: Acute Qualifiers: Herpes zoster complications: without complications Qualified Code(s) : B02.9 - Zoster without complications Base Code: B02.9 - ZOSTER WITHOUT COMPLICATIONS Comment: 11/09/16 Tolerating Acyclovir (please not error in comments 11/07/16 11:01- Acyclovir is 800mg 5X daily x 7 day) Lidoderm patch on 12 hrs, off for 12 hours x 7 days for pain, adivsed upon discharge home may use if residual pain to area but to NOT apply to open skin. Reporting Lidoderm used locally around lesions is helping pain (2) UTI (urinary tract infection) Current Visit: Yes Status: Resolved Base Code: N39.0 - URINARY TRACT INFECTION, SITE NOT SPECIFIED Comment: 11/09/16 Denies any urinary complaints Afebrile
[2016-11-09] MEDS: APIXABAN 2.5MG TABLET PO SCH ×2 (09:38→21:04)
[2016-11-09] MEDS: LISINOPRIL 20 MG TABLET PO SCH (09:38)
[2016-11-09] MEDS: ASPIRIN 81 MG TABEC PO SCH (09:38)
[2016-11-09] MEDS: CALCIUM CARBONATE 500 MG TAB.CHEW PO SCH (09:40)
[2016-11-09] MEDS: DOCUSATE SODIUM 100 MG CAPSULE PO SCH ×2 (09:40→21:04)
--- NOTE | 2016-11-09 09:42 | Occupational Therapy Tx Note ---
Occupational Therapy Tx Note - Treatment Note Tolerated: Good Total Time Spent With Patient: 30 (ADL) Occupational Therapy Treatment Note: Detail (S: Pt up in chair, daughter present for treatment. O: Reviewed ADL adaptive equipment, commode, tub/ shower equipment needs for home. Pt plans to go home with daughter for 1-2 weeks and she has a walk in shower. Educated pt/daughter about using commode for shower chair and need for tub bench once she returns home. Pt feels she will not need any ADL equipment as she will have family around all the time to assist with LE dressing/bathing. A: Pt/daughter educated re: LE ADL and bathroom equipment needs. Recommend a tub bench and commode.) Occupational Therapy Problem List: Detail (1. Decreased Ind with functional mobility needed for safe and Ind ADLs. 2. Decreased Ind with dressing. 3. Decreased Ind with showering. 4. Decreased endurance and tolerance to activity.) Occupational Therapy Goals: 1. Pt will be Ind with bed mobility and transfers. 2. Pt will be Ind with total body dressing with use of adaptive equipment as needed. 3. Pt will be Ind with showering 4. Pt will demonstrate improved endurance and activity tolerance to allow safe and Ind ADLs. Prognosis: Good Occupational Therapy Plan: OT 2-4 days per week to address self cares, functional mobility, endurance, safety and Ind with ADLs/IADLs to allow return home with spouse.
--- NOTE | 2016-11-09 14:36 | Physical Therapy Tx Note ---
Physical Therapy Tx Note - Treatment Note Total Time Spent With Patient: 25 Physical Therapy Tx Note: Detail (Patient was sitting up in bed when PT arrived. Patient independently completed all transfers into and out of bed. No assistance required for RLE this session. Patient ambulated 62' with FWW with CGAx1. Required intermittent verbal and tactile cueing to maintain upright position, but was otherwise safe with ambulation using FWW. Able to progress distance ambulated in one bout (and overall distance) despite complaints of stomach discomfort. Patient ambulation goal for next session is walking with FWW with CGAx1 from bed to nurses station with rest break as needed- this totals 87'.) Physical Therapy Problem List: Detail (1) Decreased LE strength 2) Decreased ability to complete sustained physical activity 3) The patient requires assist with mobility 4) Non ambulatory) Physical Therapy Goals: 1) The patient will ambulate with assistive device 150 feet WBAT on the R independently. 2) The patient will ambulate on 2 to 3 steps with supervision. 3) The patient will be independent with bed mobility. 4) The patient will be independent with all transfers. 5) Increased LE strength to 3+/5 in proximal R LE ms groups, for stability w/ambulation. 6) Independent with THR precautions and HEP of LE strengthening exercises. Physical Therapy Plan: PT M-F 1 to 2 times for bed mobility, transfer training, gait training, LE strengthening exercises.
[2016-11-09] MEDS: CHOLECALCIFEROL 1,000 UNIT TABLET PO SCH (15:56)
[2016-11-09] MEDS: LIDOCAINE 5% PATCH TOP SCH (15:59)
[2016-11-09] MEDS: DILTIAZEM 180MG CR CAPSULE PO SCH (21:04)
[2016-11-09] MEDS: PROPRANOLOL 80 MG PO SCH (21:05)
[2016-11-09] MEDS: PRIMIDONE 50 MG PO SCH (21:05)
[2016-11-09] MEDS: CRESTOR 5 MG PO SCH (21:05)
[2016-11-09] MEDS: MIRTAZAPINE 15 MG TABLET PO SCH (21:06)
[2016-11-10] MEDS: REMOVE PATCH 1 EACH MISC TD SCH ×2 (00:03→22:00)
[2016-11-10] MEDS: ACYCLOVIR 200 MG CAPSULE PO SCH ×5 (05:54→21:23)
[2016-11-10] MEDS: ACETAMINOPHEN 500 MG TABLET PO SCH ×3 (05:54→21:22)
[2016-11-10] MEDS: CALCIUM CARBONATE 500 MG TAB.CHEW PO SCH (09:32)
[2016-11-10] MEDS: ASPIRIN 81 MG TABEC PO SCH (09:33)
[2016-11-10] MEDS: APIXABAN 2.5MG TABLET PO SCH ×2 (09:33→21:21)
[2016-11-10] MEDS: DOCUSATE SODIUM 100 MG CAPSULE PO SCH ×2 (09:34→21:21)
[2016-11-10] MEDS: LIDOCAINE 5% PATCH TOP SCH (09:35)
[2016-11-10] MEDS: CHOLECALCIFEROL 1,000 UNIT TABLET PO SCH (09:55)
[2016-11-10] MEDS: LISINOPRIL 20 MG TABLET PO SCH (09:55)
[2016-11-10] MEDS: SUCRALFATE 1 G/10 ML UD PO SCH (09:57)
[2016-11-10] MEDS: ONDANSETRON 4 MG ODT TABLET SL PRN (10:08)
--- NOTE | 2016-11-10 10:56 | Physical Therapy Tx Note ---
Physical Therapy Tx Note - Treatment Note Tolerated: Good Total Time Spent With Patient: 35 Physical Therapy Tx Note: Detail (Pt in bed upon arrival; awake/alert. Complained of feeling "water-logged" from drinking fluids. Independent w/bed mobility to edge of bed w/HOB elevated. Independent sit/stand transfer to FWW, ambulated w/FWW to hallway w/CGA/SBA, about 25 feet, then rested due to feeling nausea. Nrsg administered medication, then pt ambulated to nrsg station w/CGA/ SBA (about 50 feet). Rested in sitting for several minutes, then ambulated to room/bed (about 78 feet) w/SBA. Independent pivot to bedside, independent stand /sit transfer. Required CGA for LE's into bed, independently positioned after therapist applied heel pads. No c/o nausea after treatment, did not appear unduly tired. Call light in reach, bedside table in reach. Nrsg notified.) Physical Therapy Problem List: Detail (1) Decreased LE strength 2) Decreased ability to complete sustained physical activity 3) The patient requires assist with mobility 4) Non ambulatory) Physical Therapy Goals: 1) The patient will ambulate with assistive device 150 feet WBAT on the R independently. 2) The patient will ambulate on 2 to 3 steps with supervision. 3) The patient will be independent with bed mobility. 4) The patient will be independent with all transfers. 5) Increased LE strength to 3+/5 in proximal R LE ms groups, for stability w/ambulation. 6) Independent with THR precautions and HEP of LE strengthening exercises. Prognosis: Good Physical Therapy Plan: PT M-F 1 to 2 times for bed mobility, transfer training, gait training, LE strengthening exercises.
--- NOTE | 2016-11-10 15:15 | Physical Therapy Tx Note ---
Physical Therapy Tx Note - Treatment Note Tolerated: Good Total Time Spent With Patient: 45 Physical Therapy Tx Note: Detail (Pt in bed upon arrival, awake/alert. Independent w/bed mobility out of bed and w/sit/stand transfer to FWW. Ambulated 30 feet w/FWW w/SBA to w/c, then transported in w/c to therapy gym. Independently transferred from w/c to mat table w/FWW. Performed 10 reps each of reclined marching, LAQ, hamstring curls w/yellow t-band, hip abduction w/ yellow t-band, hip adduction isometrics w/ball; shoulder flexion w/wand, shoulder abduction w/wand, chest press w/wand, biceps curls w/yellow t-band, rowing w/yellow t-band. Independent sit/stand transfer from mat table to FWW, ambulated 45 feet to w/c w/SBA. Transported in w/c back to room; independent transfer to bed; min assist for LE's onto bed. Independent positioning in bed. Call light and bedside table placed in reach; nrsg notified.) Physical Therapy Problem List: Detail (1) Decreased LE strength 2) Decreased ability to complete sustained physical activity 3) The patient requires assist with mobility 4) Non ambulatory) Physical Therapy Goals: 1) The patient will ambulate with assistive device 150 feet WBAT on the R independently. 2) The patient will ambulate on 2 to 3 steps with supervision. 3) The patient will be independent with bed mobility. 4) The patient will be independent with all transfers. 5) Increased LE strength to 3+/5 in proximal R LE ms groups, for stability w/ambulation. 6) Independent with THR precautions and HEP of LE strengthening exercises. Prognosis: Good Physical Therapy Plan: PT M-F 1 to 2 times for bed mobility, transfer training, gait training, LE strengthening exercises.
[2016-11-10] MEDS: DILTIAZEM 180MG CR CAPSULE PO SCH (21:21)
[2016-11-10] MEDS: CRESTOR 5 MG PO SCH (21:21)
[2016-11-10] MEDS: PRIMIDONE 50 MG PO SCH (21:22)
[2016-11-10] MEDS: MIRTAZAPINE 15 MG TABLET PO SCH (21:22)
[2016-11-10] MEDS: PROPRANOLOL 80 MG PO SCH (21:22)
[2016-11-11] MEDS: ACETAMINOPHEN 500 MG TABLET PO SCH ×2 (06:28→14:22)
[2016-11-11] MEDS: ACYCLOVIR 200 MG CAPSULE PO SCH ×3 (06:28→14:22)
[2016-11-11] MEDS: ONDANSETRON 4 MG ODT TABLET SL PRN ×2 (08:11→14:22)
[2016-11-11] MEDS: CALCIUM CARBONATE 500 MG TAB.CHEW PO SCH (08:12)
--- NOTE | 2016-11-11 09:47 | Rehab Discharge Summary ---
Patient Information - Patient Information Diagnosis: R babatunde arthroplasty R hip Ordered Treatment: PT Evaluate and Treat Surgery: Yes (right hip babatunde arthroplasty) Date of Surgery: 10/25/16 History: Detail (The patient was transferred from [facility] on 10/27/16 for Rehabilitation in the Swing Bed Unit. The patient was admitted to [facility] on 10/24 after falling when her foot caught on the lazy boy and sustaining a R femoral neck fracture.) Past Medical/Surgical Hx: PAST MEDICAL/SURGICAL HISTORY Past Surgical History 10/24/2016 ORIF right hip left hip screw approx. 20yrs ago PMH - Respiratory Hx Respiratory Disorders No Hx Asthma No Hx Bronchitis No Hx Chronic Obstructive No Pulmonary Disease (COPD) Hx Dyspnea No Hx Pneumonia No Hx Pulmonary Embolism No Hx Sleep Apnea No Hx Tuberculosis No Hx of CPAP No Comment: currently on 02 2Lpnc PMH - Cardiovascular Hx Cardiovascular Disorders No Hx Abnormal EKG No Hx Cardiac Catheterization No Hx Chest Pain No Hx Congestive Heart Failure No Hx Deep Vein Thrombosis No Hx Edema No Hx Heart Attack No Hx Hypertension Yes Hx Hypotension No Hx Irregular Heartbeat No Hx Palpitations No Hx Pacemaker/Defibrillator No Hx Vascular Disease No PMH - Neuro Hx Neurological Disorders No Hx Seizures No PMH - GI Hx Gastrointestinal Disorders Yes Hx Weight Loss/Weight Gain Yes Comment: unable to tolerate sweets PMH - Hx Genitourinary Disorders No Comment: catheter removed noon today PMH - Endocrine Hx Endocrine Disorders No Hx Diabetes No Hx Thyroid Disease No PMH - Musculoskeletal Hx Musculoskeletal Disorders Yes Hx Arthritis Yes Hx Back Injury No Hx Fibromyalgia No Hx Gout No Hx Musculoskeletal Disease No PMH - Psych Hx Psychiatric Problems No PMH - Hematology/Oncology Hx Hematology/Oncology No Disorders Premorbid Status: Detail (Per the patient's report she was independent with all mobility and ambulated without assistive device. The patient was independent with all household tasks.) Social History: Detail (The patient lives with her spouse in a 1 story house with basement. Her laundry is in the basement and she goes down into the basement often. She has 1 step on the porch and one step to get into house with no railings. The patient has a regular tub/shower combo and regular toilet without grab bars. She reports one bathroom has an elevated toilet. She usually stands to shower and was Ind with all ADLs, meal prep, laundry and home mgmt. The patient has a standard walker.) Precautions: [place], Fall, Other (THR precautions) - Time With Patient Total Time Spent With Patient (Min): 20 Treatment Procedures: Detail (Pt was sitting in bed when PT arrived. She reported her stomach was upset, possibly attributed to nerves in anticipation of going home. Generally, reports no concerns with return to daughter's home. Patient independently transitioned to sitting EOB for manual muscle testing. Patient brought her standard walker in to better determine home equipment needs. Pt was able to demonstrate appropriate technique with standard walker, although she tended to push it forward at times (FWW technique). Pt stated she would like to add forward wheels for ease of movement. SPT and PT will bring down walker wheels prior to D/C.) Subjective Information - Subjective Information Per Patient Objective Data - Pain Pain Scale Used: Controlled pain based on tolerance to activity - Mental Status Patient Orientation: Oriented x3 - Visual Perception Appears within normal limits for therapeutic activities - ROM Other (LE ROM WNL. Pt follows posterior hip precautions s/p babatunde hip arthroplasty (no hip flexion >90 degrees, no hip IR or adduction pasted neutral) .) - Strength/Tone Other (R LE strength: hip flexion 3+/5, hip abduction 4-/5, hip adduction 4/5, knee flexion 4/5, knee extension 4/5, and ankle DF and PF 5/5. L LE strength: hip flexion 4+/5, hip abduction 4/5 and adduction 4/5, knee flexion 4/5, knee extension 4+/5, and ankle DF and PF 5/5.) - Coordination Appears within normal limits for therapeutic activities - Bed Mobility Independent (Independent with rolling and scooting in bed) - Transfers Independent (Independent with transfers from supine to sit, sit to stand, and getting out of tub from shower chair. Required ModAx1 to assist RLE into tub.) - Balance Balance Sitting: Good (Able to sit EOB without UE support and no LOB) Balance Standing: Good (No LOB observed throughout PT sessions. Able to maintain balance with appropriate balance strategy with eyes closed and hands on walker.) - Sensation Intact - Gait Detail (Pt ambulates with FWW with step to gait pattern. Requires intermittent cueing to stand upright; poor posture apparent when pt complaints of nausea. Able to maintain upright position otherwise. Pt able to ascend/descend two 6' steps using B railings without LOB with minimal difficulty. Recommend family assists when she returns to her home since there is no railing.) - ADL's/IADL's Detail - Special Tests No Therapy Assessment - Therapy Assessment Detail (At conclusion of PT POC, patient has demonstrated improvements in RLE strength and function as evidence by increase distance ambulated, improved muscle group testing, elimination of assistance need for bed mobility and transfers, and overall increase in tolerance to activity. Patient met all PT goals. Recommend discharge with home therapy to ensure patient reaches maximum functional potential.) Patient Education - Patient Education Teaching Topic: Equipment Use (Standard walker vs. forward-wheeled walker), Exercise/Activity (General LE strengthening HEP), Precautions (Hip precautions s /p R babatunde hip arthroplasty (no hip flexion >90, no hip IR or adduction past neutral)) Response: Return Demonstration, Reinforcement Needed (Patient required intermittent external cueing (verbal and tactile) to maintain upright position with ambulation using FWW, breathe with activity, and to self-assist R LE when transferring from sitting EOB to supine.), Verbalize Understanding Teaching Method: Discussion, Demonstration Teaching Recipient: Patient, Family (During a few PT sessions, patient's daughter present and engaged in patient education.) Barriers To Learning: None Problem List - Problem List Physical Therapy Problem List: Detail (1) Decreased LE strength 2) Decreased ability to complete sustained physical activity 3) The patient requires assist with mobility 4) Non ambulatory) Occupational Therapy Problem List: Detail (1. Decreased Ind with functional mobility needed for safe and Ind ADLs. 2. Decreased Ind with dressing. 3. Decreased Ind with showering. 4. Decreased endurance and tolerance to activity.) Goals - Goals Physical Therapy Goals: 1) The patient will ambulate with assistive device 150 feet WBAT on the R independently. GOAL MET. 2) The patient will ambulate on 2 to 3 steps with supervision. GOAL MET. 3) The patient will be independent with bed mobility. GOAL MET. 4) The patient will be independent with all transfers. GOAL MET. 5) Increased LE strength to 3+/5 in proximal R LE ms groups, for stability w/ambulation. GOAL MET. 6) Independent with THR precautions and HEP of LE strengthening exercises. GOAL MET Occupational Therapy Goals: 1. Pt will be Ind with bed mobility and transfers. 2. Pt will be Ind with total body dressing with use of adaptive equipment as needed. 3. Pt will be Ind with showering 4. Pt will demonstrate improved endurance and activity tolerance to allow safe and Ind ADLs. Prognosis - Prognosis Good (Patient prognosis considered good based on steady improvement under swing bed care. Anticipate continued improvement with home therapy so long as patient remains active, nausea is controlled, and nutrition needs are met.) Plan - Plan Physical Therapy Plan: PT recommends home health PT to help patient achieve maximum functional potential/pre-morbid status. Occupational Therapy Plan: OT 2-4 days per week to address self cares, functional mobility, endurance, safety and Ind with ADLs/IADLs to allow return home with spouse.
[2016-11-11] MEDS: LIDOCAINE 5% PATCH TOP SCH (10:23)
[2016-11-11] MEDS: CHOLECALCIFEROL 1,000 UNIT TABLET PO SCH (10:24)
[2016-11-11] MEDS: DOCUSATE SODIUM 100 MG CAPSULE PO SCH (10:24)
[2016-11-11] MEDS: ASPIRIN 81 MG TABEC PO SCH (10:24)
[2016-11-11] MEDS: APIXABAN 2.5MG TABLET PO SCH (10:25)
[2016-11-11] MEDS: LISINOPRIL 20 MG TABLET PO SCH (10:29)
[2016-11-11] MEDS: ESTRACE VAGINAL MC SCH (10:31)
--- NOTE | 2016-11-11 13:48 | Rehab Discharge Summary ---
Patient Information - Patient Information Diagnosis: Nicolas arthroplasty R hip Ordered Treatment: OT Evaluate and Treat Surgery: Yes (right hip nicolas arthroplasty) Date of Surgery: 10/25/16 History: Detail (The patient was transferred from [facility] on 10/27/16 for Rehabilitation in the Swing Bed Unit. The patient was admitted to [facility] on 10/24 after falling when her foot caught on the lazy boy and sustaining a R femoral neck fracture.) Past Medical/Surgical Hx: PAST MEDICAL/SURGICAL HISTORY Past Surgical History 10/24/2016 ORIF right hip left hip screw approx. 20yrs ago PMH - Respiratory Hx Respiratory Disorders No Hx Asthma No Hx Bronchitis No Hx Chronic Obstructive No Pulmonary Disease (COPD) Hx Dyspnea No Hx Pneumonia No Hx Pulmonary Embolism No Hx Sleep Apnea No Hx Tuberculosis No Hx of CPAP No Comment: currently on 02 2Lpnc PMH - Cardiovascular Hx Cardiovascular Disorders No Hx Abnormal EKG No Hx Cardiac Catheterization No Hx Chest Pain No Hx Congestive Heart Failure No Hx Deep Vein Thrombosis No Hx Edema No Hx Heart Attack No Hx Hypertension Yes Hx Hypotension No Hx Irregular Heartbeat No Hx Palpitations No Hx Pacemaker/Defibrillator No Hx Vascular Disease No PMH - Neuro Hx Neurological Disorders No Hx Seizures No PMH - GI Hx Gastrointestinal Disorders Yes Hx Weight Loss/Weight Gain Yes Comment: unable to tolerate sweets PMH - Hx Genitourinary Disorders No Comment: catheter removed noon today PMH - Endocrine Hx Endocrine Disorders No Hx Diabetes No Hx Thyroid Disease No PMH - Musculoskeletal Hx Musculoskeletal Disorders Yes Hx Arthritis Yes Hx Back Injury No Hx Fibromyalgia No Hx Gout No Hx Musculoskeletal Disease No PMH - Psych Hx Psychiatric Problems No PMH - Hematology/Oncology Hx Hematology/Oncology No Disorders Premorbid Status: Detail (Per the patient's report she was independent with all mobility and ambulated without assistive device. The patient was independent with all household tasks.) Social History: Detail (The patient lives with her spouse in a 1 story house with basement. Her laundry is in the basement and she goes down into the basement often. She has 1 step on the porch and one step to get into house with no railings. The patient has a regular tub/shower combo and regular toilet without grab bars. She reports one bathroom has an elevated toilet. She usually stands to shower and was Ind with all ADLs, meal prep, laundry and home mgmt. The patient has a standard walker.) Precautions: [place], Fall, Other (THR precautions) Subjective Information - Subjective Information Per Patient Objective Data - Pain Pain Present: Yes (No pain at rest, mild pain in right hip with movement) - Mental Status Patient Orientation: Oriented x3 - Visual Perception Appears within normal limits for therapeutic activities - ROM Within normal limits (Bobby UE AROM WNL) - Strength/Tone Within normal limits (Bobby UE MMT 4+/5 throughout) - Coordination Appears within normal limits for therapeutic activities - Bed Mobility Independent (Ind with supine to sit and sit to supine although pt occasionally requires assist for sit to supine when fatigued.) - Transfers Independent - Balance Balance Sitting: Good Balance Standing: Good - Sensation Intact - Gait Detail (Amb household distances with 2 wheeled walker.) - ADL's/IADL's Detail (Pt is Ind with showering in sitting with hand held shower with modified technique to wash/dry right LE. She is Ind with modified dressing technique using pharmacovigilance specialist, sock aid and slip on shoes. Pt decided not to purchase ADL equipment as she will have family available to assist after discharge. She is knowledgeable about THR precautions.) Therapy Assessment - Therapy Assessment Detail (Modified Ind with showering and dressing, endurance is slowly improving although still decreased.) Problem List - Problem List Physical Therapy Problem List: Detail (1) Decreased LE strength 2) Decreased ability to complete sustained physical activity 3) The patient requires assist with mobility 4) Non ambulatory) Occupational Therapy Problem List: Detail (1. Decreased Ind with functional mobility needed for safe and Ind ADLs. 2. Decreased Ind with dressing. 3. Decreased Ind with showering. 4. Decreased endurance and tolerance to activity.) Goals - Goals Physical Therapy Goals: 1) The patient will ambulate with assistive device 150 feet WBAT on the R independently. GOAL MET. 2) The patient will ambulate on 2 to 3 steps with supervision. GOAL MET. 3) The patient will be independent with bed mobility. GOAL MET. 4) The patient will be independent with all transfers. GOAL MET. 5) Increased LE strength to 3+/5 in proximal R LE ms groups, for stability w/ambulation. GOAL MET. 6) Independent with THR precautions and HEP of LE strengthening exercises. GOAL MET Occupational Therapy Goals: Goals Met: 1. Pt will be Ind with bed mobility and transfers. 2. Pt will be Ind with total body dressing with use of adaptive equipment as needed. 3. Pt will be Ind with showering 4. Pt will demonstrate improved endurance and activity tolerance to allow safe and Ind ADLs. Prognosis - Prognosis Good Plan - Plan Physical Therapy Plan: PT recommends home health PT to help patient achieve maximum functional potential/pre-morbid status. Occupational Therapy Plan: Pt is discharging home with daughter today with home OT/PT.
--- NOTE | 2016-11-11 15:51 | Discharge Summary ---
Providers Discharge Summary Date: 11/11/16 Date of admission: 10/27/16 16:19 Expected Date of Discharge: 11/11/16 Attending physician: MICHELE HANNA Primary care physician: SARA LEDESMA P.A-C Consults: Consult Orders 10/31/16 16:01 Consult NOW Consulting Provider: [facility] Physician Instructions: Reason For Exam: difficulty urinating Physical Exam - Vital Signs Vital Signs: Vital Signs - Last 24 Hrs Temp Pulse Resp BP Pulse Ox 11/11/16 10:00 98.2 F 77 16 108/53 95 - General General Appearance: Alert, Oriented x3, Cooperative, No acute distress - Head Head exam: Atraumatic, Normocephalic - Eye Eye exam: Normal appearance - ENT ENT exam: Normal exam Ear exam: Normal external inspection Mouth exam: Normal external inspection - Neck Neck exam: Normal inspection, Full ROM - Respiratory Respiratory exam: Normal lung sounds bilaterally. negative: Prolonged expiratory, Wheezes - Cardiovascular Cardiovascular Exam: Regular rate, Normal rhythm - GI/Abdominal GI/Abdominal exam: Soft, Normal bowel sounds - Rectal Rectal exam: Deferred - exam: Deferred - Extremities Extremities exam: negative: Calf tenderness, Full ROM (not of RLE), Pedal edema , Tenderness - Back Back exam: Reports: Normal inspection - Neurological Neurological exam: Abnormal gait (due to pain level), Alert, Oriented X3 - Psychiatric Psychiatric exam: Flat affect - Skin Skin exam: Vesicles (improvement in vesicles, denies pain except for when laying on area) Hospitalization - Hospitalization Admission Diagnosis: Status post right babatunde-hip arthroplasty - Problem List (1) Herpes zoster Status: Acute Discharge Diagnosis: Herpes zoster complications: without complications Qualified Code(s) : B02.9 - Zoster without complications Base Code: B02.9 - ZOSTER WITHOUT COMPLICATIONS Comment: 11/11/16 Tolerating Acyclovir, resolving as expecte, will complete course at home. Lidoderm patch on 12 hrs, off for 12 hours x 7 days for pain, adivsed upon discharge home may use if residual pain to area but to NOT apply to open skin. Reporting Lidoderm used locally around lesions is helping pain (2) UTI (urinary tract infection) Status: Resolved Base Code: N39.0 - URINARY TRACT INFECTION, SITE NOT SPECIFIED Comment: 11/11/16 Denies any urinary complaints Afebrile - Hospitalization Course Disposition: Home, Self-Care Abnormal Labs: Abnormal Lab Results 10/28/16 10/29/16 10/29/16 Range/Units 13:00 06:00 06:00 RBC 3.69 L (3.80-5.40) M/uL Hgb 11.3 L (11.6-16.0) gm/dl Hct 34.2 L (35.0-47.0) % MPV 10.6 H (7.4-10.4) fl Lymphocytes % 11.0 L (16-45) % Monocytes % 11.0 H (0-9) % Sodium 129 L (136-145) mmol/L Potassium (3.5-5.1) mmol/L Chloride 89 L (98-107) mmol/L Creatinine 0.5 L (0.52-1.04) mg/dL Calcium 8.0 L (8.5-10.1) mg/dL Total Protein (6.3-8.2) gm/dL Albumin (3.5-5.0) gm/dL Albumin/Globulin Ratio (1.1-1.8) Urine Protein 30 mg/dl H (NEGATIVE) Urine Ketones Trace H (NEGATIVE) Urine Blood (NEGATIVE) Urine Nitrite (NEGATIVE) Urine Bilirubin (NEGATIVE) Ur Leukocyte Esterase Moderate H (NEGATIVE) 10/31/16 10/31/16 10/31/16 Range/Units 06:05 06:05 11:20 RBC 3.68 L (3.80-5.40) M/uL Hgb 11.2 L (11.6-16.0) gm/dl Hct 34.0 L (35.0-47.0) % MPV (7.4-10.4) fl Lymphocytes % 14.0 L (16-45) % Monocytes % (0-9) % Sodium (136-145) mmol/L Potassium 3.1 L (3.5-5.1) mmol/L Chloride 97 L (98-107) mmol/L Creatinine 0.5 L (0.52-1.04) mg/dL Calcium 7.7 L (8.5-10.1) mg/dL Total Protein (6.3-8.2) gm/dL Albumin (3.5-5.0) gm/dL Albumin/Globulin Ratio (1.1-1.8) Urine Protein 100 mg/dl H (NEGATIVE) Urine Ketones (NEGATIVE) Urine Blood Large H (NEGATIVE) Urine Nitrite Positive H (NEGATIVE) Urine Bilirubin Small H (NEGATIVE) Ur Leukocyte Esterase Moderate H (NEGATIVE) 11/03/16 Range/Units 06:00 RBC (3.80-5.40) M/uL Hgb (11.6-16.0) gm/dl Hct (35.0-47.0) % MPV (7.4-10.4) fl Lymphocytes % (16-45) % Monocytes % (0-9) % Sodium (136-145) mmol/L Potassium (3.5-5.1) mmol/L Chloride (98-107) mmol/L Creatinine (0.52-1.04) mg/dL Calcium 8.2 L (8.5-10.1) mg/dL Total Protein 5.6 L (6.3-8.2) gm/dL Albumin 2.8 L (3.5-5.0) gm/dL Albumin/Globulin Ratio 1.0 L (1.1-1.8) Urine Protein (NEGATIVE) Urine Ketones (NEGATIVE) Urine Blood (NEGATIVE) Urine Nitrite (NEGATIVE) Urine Bilirubin (NEGATIVE) Ur Leukocyte Esterase (NEGATIVE) Condition at Discharge: (2) Stable Discharge Medications - Discharge Medications Prescriptions: Primidone 1 tab PO QHS #30 tablet Propranolol HCl [Propranolol HCl ER] 80 mg PO QHS #30 cap.sa.24h Mirtazapine [Remeron] 30 mg PO QHS #30 tablet Acetaminophen [Tylenol 500Mg Tab] 1,000 mg PO Q8HR #90 tablet Docusate Sodium [Colace] 100 mg PO BID #60 cap Rosuvastatin Calcium [Crestor] 5 mg PO DAILY #30 tablet Bisacodyl [Dulcolax] 5 mg PO DAILY PRN #30 tablet PRN Reason: Constipation Aspirin Enteric-Coated [Ecotrin (EC)] 81 mg PO DAILY #30 tabec Apixaban [Eliquis] 2.5 mg PO BID #60 tablet Lidocaine Patch [Lidoderm] 1 each TOP Q24H #1 box Magnesium Hydroxide/Al Hydrox [Maalox] 5 ml PO Q4H PRN #1 bottle PRN Reason: Gi Upset Calcium Carbonate [Tums] 1,000 mg PO DAILYWM #30 tab.chew Ondansetron [Zofran Odt] 4 mg SL Q8H PRN #20 tab.rapdis PRN Reason: Nausea/Vomiting Acyclovir [Zovirax] 800 mg PO 5XD #20 capsule Home Medications: Ambulatory Orders Diltiazem HCl [Diltiazem 24Hr ER] 10/27/16 [Last Taken Unknown] Diltiazem HCl [Diltiazem 24Hr ER] 10/27/16 [Last Taken Unknown] Lisinopril [Zestril] 10/27/16 [Last Taken Unknown] Acetaminophen [Tylenol 500Mg Tab] 1,000 mg PO Q8HR #90 tablet 11/11/16 [Last Taken Unknown] Acyclovir [Zovirax] 800 mg PO 5XD #20 capsule 11/11/16 [Last Taken Unknown] Apixaban [Eliquis] 2.5 mg PO BID #60 tablet 11/11/16 [Last Taken Unknown] Aspirin Enteric-Coated [Ecotrin (EC)] 81 mg PO DAILY #30 tabec 11/11/16 [Last Taken Unknown] Bisacodyl [Dulcolax] 5 mg PO DAILY PRN #30 tablet 11/11/16 [Last Taken Unknown] Calcium Carbonate [Tums] 1,000 mg PO DAILYWM #30 tab.chew 11/11/16 [Last Taken Unknown] Docusate Sodium [Colace] 100 mg PO BID #60 cap 11/11/16 [Last Taken Unknown] Estradiol [Estrace] 1 apply VG DAILY PRN #1 tube 11/11/16 [Last Taken Unknown] Lidocaine Patch [Lidoderm] 1 each TOP Q24H #1 box 11/11/16 [Last Taken Unknown] Magnesium Hydroxide/Al Hydrox [Maalox] 5 ml PO Q4H PRN #1 bottle 11/11/16 [Last Taken Unknown] Mirtazapine [Remeron] 30 mg PO QHS #30 tablet 11/11/16 [Last Taken Unknown] Ondansetron [Zofran Odt] 4 mg SL Q8H PRN #20 tab.rapdis 11/11/16 [Last Taken Unknown] Primidone 1 tab PO QHS #30 tablet 11/11/16 [Last Taken Unknown] Propranolol HCl [Propranolol HCl ER] 80 mg PO QHS #30 cap.sa.24h 11/11/16 [Last Taken Unknown] Rosuvastatin Calcium [Crestor] 5 mg PO DAILY #30 tablet 11/11/16 [Last Taken Unknown] Discharge Plan - Discharge Instructions Activity at Discharge: Ambulate Only With Your Walker, Resume Usual Activities As Tolerated Diet at Discharge: Regular Diet Instructions: Apixaban (By mouth), Herpes Zoster (DC), Norris Catheter Placement and Care (DC), Precautions after Total Joint Replacement Surgery (DC) , Chronic Urinary Retention in Women (DC), Urinary Leg Bag (GEN) Additional Instructions: 2 Activity: As tolerated Wear DIANE hose Do not cross legs, turn leg inward, or bend over 90 degrees 2 Diet: As tolerated, increase food and fluids Continue adding high calorie/protein foods (peanut butter to crackers, make soups w/ whole milk/cream, etc.) to foods she is already able to eat and offer small frequent meals/snacks to try to reach usual body weight again (116lb) 2 Consults: [] 2 Follow Up: [Dr. Britton appointment November 18 at 2:20pm at the [facility] office, keep norris in place until appointment Call to schedule appointment with Dr. Nunez call [phone] for follow up from hip procedure Call to schedule a follow up appointment with your primary care within 2 weeks Follow up with Visiting Nurses will call to schedule to set up visitation call [phone] if any questions] 2 Dressing/Wound Care: (Type) (Change) 2 Additional: []
--- NOTE | 2016-11-11 16:27 | Discharge Summary ---
Providers Discharge Summary Date: 11/11/16 Date of admission: 10/27/16 16:19 Expected Date of Discharge: 11/11/16 Attending physician: MICHELE HANNA Primary care physician: SARA LEDESMA P.A-C Consults: Consult Orders 10/31/16 16:01 Consult NOW Consulting Provider: [facility] Physician Instructions: Reason For Exam: difficulty urinating Physical Exam - Vital Signs Vital Signs: Vital Signs - Last 24 Hrs Temp Pulse Resp BP Pulse Ox 11/11/16 10:00 98.2 F 77 16 108/53 95 - General General Appearance: Alert, Oriented x3, Cooperative, No acute distress, Other ( thin and frail) - Head Head exam: Atraumatic, Normocephalic - Eye Eye exam: Normal appearance - ENT ENT exam: Normal exam Ear exam: Normal external inspection Mouth exam: Normal external inspection - Neck Neck exam: Normal inspection, Full ROM - Respiratory Respiratory exam: Normal lung sounds bilaterally. negative: Prolonged expiratory, Wheezes - Cardiovascular Cardiovascular Exam: Regular rate, Normal rhythm - GI/Abdominal GI/Abdominal exam: Soft, Normal bowel sounds - Rectal Rectal exam: Deferred - exam: Deferred - Extremities Extremities exam: negative: Calf tenderness, Full ROM (not of RLE), Pedal edema , Tenderness - Back Back exam: Reports: Normal inspection - Neurological Neurological exam: Abnormal gait (due to pain level), Alert, Oriented X3 - Psychiatric Psychiatric exam: Flat affect - Skin Skin exam: Vesicles (tender vesicular lesion with deep surrounding errythema along right L4 dermatome) Hospitalization - Hospitalization Admission Diagnosis: Status post right babatunde-hip arthroplasty. Herpes Zoster - Problem List (1) S/P hip hemiarthroplasty Status: Acute Base Code: Z96.649 - PRESENCE OF UNSPECIFIED ARTIFICIAL HIP JOINT Comment: 11/11/16: Completed physical therapy with our rehab and doing well. Patient is a 80 yo female s/p right hip ORIF. Will shedule tylenol 1000mg TID for pain relief. D/c codine since patient thinks it may be upsetting her stomach. Continue Elquis 2.5 mg BID for adequate DVT prophylaxis. PT/OT to assist with increasing physical strength and functioning. (2) Weakness Status: Acute Base Code: R53.1 - WEAKNESS Comment: 11/11/16: 2/2 right hip surgery. PT/OT to help build physical strength and functioning. Feels has recovered 100% back to baseline (3) DVT prophylaxis Status: Acute Base Code: [id number] - Comment: 11/03/16: Eliquis 2.5 mg bid. (4) Full code status Status: Acute Base Code: Z78.9 - OTHER SPECIFIED HEALTH STATUS Comment: 11/03/16: patient is full code (5) Decreased appetite Status: Acute Base Code: R63.0 - ANOREXIA Comment: 11/11- continue remeron to bump appetitie and improve mood. counseled on trying for more intake. Family also encouraging same. (6) Urinary retention with incomplete bladder emptying Status: Acute Base Code: R33.9 - RETENTION OF URINE, UNSPECIFIED Comment: 11/11/16- patient to follow up with urologist who recommeneded norris to be in place. educated daughter on how to change bag at home. - Hospitalization Course Disposition: Home, Self-Care Abnormal Labs: Abnormal Lab Results 10/28/16 10/29/16 10/29/16 Range/Units 13:00 06:00 06:00 RBC 3.69 L (3.80-5.40) M/uL Hgb 11.3 L (11.6-16.0) gm/dl Hct 34.2 L (35.0-47.0) % MPV 10.6 H (7.4-10.4) fl Lymphocytes % 11.0 L (16-45) % Monocytes % 11.0 H (0-9) % Sodium 129 L (136-145) mmol/L Potassium (3.5-5.1) mmol/L Chloride 89 L (98-107) mmol/L Creatinine 0.5 L (0.52-1.04) mg/dL Calcium 8.0 L (8.5-10.1) mg/dL Total Protein (6.3-8.2) gm/dL Albumin (3.5-5.0) gm/dL Albumin/Globulin Ratio (1.1-1.8) Urine Protein 30 mg/dl H (NEGATIVE) Urine Ketones Trace H (NEGATIVE) Urine Blood (NEGATIVE) Urine Nitrite (NEGATIVE) Urine Bilirubin (NEGATIVE) Ur Leukocyte Esterase Moderate H (NEGATIVE) 02/13/17 02/13/17 02/13/17 Range/Units 06:05 06:05 11:20 RBC 3.68 L (3.80-5.40) M/uL Hgb 11.2 L (11.6-16.0) gm/dl Hct 34.0 L (35.0-47.0) % MPV (7.4-10.4) fl Lymphocytes % 14.0 L (16-45) % Monocytes % (0-9) % Sodium (136-145) mmol/L Potassium 3.1 L (3.5-5.1) mmol/L Chloride 97 L (98-107) mmol/L Creatinine 0.5 L (0.52-1.04) mg/dL Calcium 7.7 L (8.5-10.1) mg/dL Total Protein (6.3-8.2) gm/dL Albumin (3.5-5.0) gm/dL Albumin/Globulin Ratio (1.1-1.8) Urine Protein 100 mg/dl H (NEGATIVE) Urine Ketones (NEGATIVE) Urine Blood Large H (NEGATIVE) Urine Nitrite Positive H (NEGATIVE) Urine Bilirubin Small H (NEGATIVE) Ur Leukocyte Esterase Moderate H (NEGATIVE) 11/03/16 Range/Units 06:00 RBC (3.80-5.40) M/uL Hgb (11.6-16.0) gm/dl Hct (35.0-47.0) % MPV (7.4-10.4) fl Lymphocytes % (16-45) % Monocytes % (0-9) % Sodium (136-145) mmol/L Potassium (3.5-5.1) mmol/L Chloride (98-107) mmol/L Creatinine (0.52-1.04) mg/dL Calcium 8.2 L (8.5-10.1) mg/dL Total Protein 5.6 L (6.3-8.2) gm/dL Albumin 2.8 L (3.5-5.0) gm/dL Albumin/Globulin Ratio 1.0 L (1.1-1.8) Urine Protein (NEGATIVE) Urine Ketones (NEGATIVE) Urine Blood (NEGATIVE) Urine Nitrite (NEGATIVE) Urine Bilirubin (NEGATIVE) Ur Leukocyte Esterase (NEGATIVE) Condition at Discharge: (2) Stable Discharge Medications - Discharge Medications Prescriptions: Primidone 1 tab PO QHS #30 tablet Propranolol HCl [Propranolol HCl ER] 80 mg PO QHS #30 cap.sa.24h Mirtazapine [Remeron] 30 mg PO QHS #30 tablet Acetaminophen [Tylenol 500Mg Tab] 1,000 mg PO Q8HR #90 tablet Docusate Sodium [Colace] 100 mg PO BID #60 cap Rosuvastatin Calcium [Crestor] 5 mg PO DAILY #30 tablet Bisacodyl [Dulcolax] 5 mg PO DAILY PRN #30 tablet PRN Reason: Constipation Aspirin Enteric-Coated [Ecotrin (EC)] 81 mg PO DAILY #30 tabec Apixaban [Eliquis] 2.5 mg PO BID #60 tablet Lidocaine Patch [Lidoderm] 1 each TOP Q24H #1 box Magnesium Hydroxide/Al Hydrox [Maalox] 5 ml PO Q4H PRN #1 bottle PRN Reason: Gi Upset Calcium Carbonate [Tums] 1,000 mg PO DAILYWM #30 tab.chew Ondansetron [Zofran Odt] 4 mg SL Q8H PRN #20 tab.rapdis PRN Reason: Nausea/Vomiting Acyclovir [Zovirax] 800 mg PO 5XD #20 capsule Home Medications: Ambulatory Orders Diltiazem HCl [Diltiazem 24Hr ER] 10/27/16 [Last Taken Unknown] Diltiazem HCl [Diltiazem 24Hr ER] 10/27/16 [Last Taken Unknown] Lisinopril [Zestril] 10/27/16 [Last Taken Unknown] Acetaminophen [Tylenol 500Mg Tab] 1,000 mg PO Q8HR #90 tablet 11/11/16 [Last Taken Unknown] Acyclovir [Zovirax] 800 mg PO 5XD #20 capsule 11/11/16 [Last Taken Unknown] Apixaban [Eliquis] 2.5 mg PO BID #60 tablet 11/11/16 [Last Taken Unknown] Aspirin Enteric-Coated [Ecotrin (EC)] 81 mg PO DAILY #30 tabec 11/11/16 [Last Taken Unknown] Bisacodyl [Dulcolax] 5 mg PO DAILY PRN #30 tablet 11/11/16 [Last Taken Unknown] Calcium Carbonate [Tums] 1,000 mg PO DAILYWM #30 tab.chew 11/11/16 [Last Taken Unknown] Docusate Sodium [Colace] 100 mg PO BID #60 cap 11/11/16 [Last Taken Unknown] Estradiol [Estrace] 1 apply VG DAILY PRN #1 tube 11/11/16 [Last Taken Unknown] Lidocaine Patch [Lidoderm] 1 each TOP Q24H #1 box 11/11/16 [Last Taken Unknown] Magnesium Hydroxide/Al Hydrox [Maalox] 5 ml PO Q4H PRN #1 bottle 11/11/16 [Last Taken Unknown] Mirtazapine [Remeron] 30 mg PO QHS #30 tablet 11/11/16 [Last Taken Unknown] Ondansetron [Zofran Odt] 4 mg SL Q8H PRN #20 tab.rapdis 11/11/16 [Last Taken Unknown] Primidone 1 tab PO QHS #30 tablet 11/11/16 [Last Taken Unknown] Propranolol HCl [Propranolol HCl ER] 80 mg PO QHS #30 cap.sa.24h 11/11/16 [Last Taken Unknown] Rosuvastatin Calcium [Crestor] 5 mg PO DAILY #30 tablet 11/11/16 [Last Taken Unknown] Discharge Plan - Discharge Instructions Activity at Discharge: Ambulate Only With Your Walker, Resume Usual Activities As Tolerated Instructions: Apixaban (By mouth), Herpes Zoster (DC), Norris Catheter Placement and Care (DC), Precautions after Total Joint Replacement Surgery (DC) , Chronic Urinary Retention in Women (DC), Urinary Leg Bag (GEN) Additional Instructions: 2 Activity: As tolerated Wear DIANE hose Do not cross legs, turn leg inward, or bend over 90 degrees 2 Diet: As tolerated, increase food and fluids Continue adding high calorie/protein foods (peanut butter to crackers, make soups w/ whole milk/cream, etc.) to foods she is already able to eat and offer small frequent meals/snacks to try to reach usual body weight again (116lb) 2 Consults: [] 2 Follow Up: [Dr. Britton appointment November 18 at 2:20pm at the [facility], keep norris in place until appointment Call to schedule appointment with Dr. Nunez call [phone] for follow up from hip procedure Call to schedule a follow up appointment with your primary care within 2 weeks Follow up with Visiting Nurses will call to schedule to set up visitation call [phone] if any questions] 2 Dressing/Wound Care: (Type) (Change) 2 Additional: []
== END 2016-11-11 16:30 | disposition home or self-care (01) | DRG 948 ==
LOC: MEDSURG 16:19
PROVIDERS: ADMIT Family Medicine; ATTEND Family Medicine
DX: R53.1 Weakness (principal); Z96.649 Presence of unspecified artificial hip joint; R33.9 Retention of urine, unspecified; Z78.9 Other specified health status; R63.0 Anorexia; B02.9 Zoster without complications
CPT/HCPCS: 80048; 80053; 81001; 82310; 84132; 85027; 94760; 97110; 97161; 97165; 97530; 97535; 99223; 99233; 99239